=== PATIENT | female | born 1975 | race Caucasian/White ===

== ENCOUNTER 2021-02-22 08:23 | Outpatient (REF) | payer BC, SELFPAY ==
[2021-02-22 12:38] LABS: Alanine Aminotransferase 24 U/L (0-31); Alkaline Phosphatase 43 U/L (39-117); Anion Gap 12 (12-20); Aspartate Amino Transferase 19 U/L (5-31); Bilirubin Total 0.5 mg/dL (0.0-1.0); Blood Urea Nitrogen 12 mg/dL (9-16); Calcium 9.2 mg/dL (8.4-10.2); Carbon Dioxide 28 mmol/L (22-29); Chloride 103 mmol/L (96-108); Cholesterol 208 mg/dL; Estimated Glomerular Filt Rate > 60; Glucose Fasting 94 mg/dL (60-99); HDL Cholesterol 49 mg/dL; LDL Cholesterol Calculated 134 mg/dl; Potassium 3.6 mmol/L (3.3-5.1); Sodium 139 mmol/L (135-145); Total Protein 6.4 g/dL (6.5-8.0); Triglycerides 129 mg/dL
== END 2021-02-22 08:24 | disposition home or self-care (01) ==
LOC: HO.HMGCLDS 08:23
PROVIDERS: PCP Internal Medicine; Visit Provider Internal Medicine
DX: I10 Essential (primary) hypertension (principal); F41.9 Anxiety disorder, unspecified
CPT/HCPCS: 36415; 80053; 80061

== ENCOUNTER 2021-05-18 11:10 | Outpatient (REF) | payer BC, SELFPAY ==
--- NOTE | ~2021-05-18 | XR_ITS ---
EXAMINATION: XR HAND, BILATERAL CLINICAL INFORMATION: Pain COMPARISON: None available at the time of this dictation. TECHNIQUE: Frontal lateral oblique views of each hand were obtained. FINDINGS: There is no fracture or dislocation. Radiocarpal, intercarpal, carpometacarpal, metacarpophalangeal and interphalangeal joints are intact. There are no osteolytic or osteoblastic lesions. There are no bone erosions. Surrounding soft tissue unremarkable. XR/XR hand RT min 3V IMPRESSION: No significant osseous changes to explain patient's symptoms. No evidence of erosions. If remain symptomatic may consider correlation with MRI as more sensitive test.
--- NOTE | ~2021-05-18 | XR_ITS ---
EXAMINATION: XR HAND, BILATERAL CLINICAL INFORMATION: Pain COMPARISON: None available at the time of this dictation. TECHNIQUE: Frontal lateral oblique views of each hand were obtained. FINDINGS: There is no fracture or dislocation. Radiocarpal, intercarpal, carpometacarpal, metacarpophalangeal and interphalangeal joints are intact. There are no osteolytic or osteoblastic lesions. There are no bone erosions. Surrounding soft tissue unremarkable. XR/XR hand LT min 3V IMPRESSION: No significant osseous changes to explain patient's symptoms. No evidence of erosions. If remain symptomatic may consider correlation with MRI as more sensitive test.
== END 2021-05-18 11:11 | disposition home or self-care (01) ==
LOC: HO.XRAY 11:10
PROVIDERS: PCP Internal Medicine; Visit Provider Student in an Organized Health Care Education/Training Program
DX: M79.641 Pain in right hand (principal); M79.642 Pain in left hand
CPT/HCPCS: 73130

== ENCOUNTER 2022-07-09 15:05 | Outpatient (REF) | payer BC, SELFPAY ==
[2022-07-09 16:29] LABS: MANUAL DIFF FLAG NO
[2022-07-09 16:33] LABS: Basophils Percent Auto 0.4 % (0-2); Eosinophils Percent Auto 0.2 % (0-4); Hemoglobin 12.5 g/dl (12.0-16.0); Imm Gran Abs Auto 0.01 X10*3/uL (0.00-0.03); Imm Gran Pct Auto 0.1 % (0.0-0.4); Lymphocytes Absolute Auto 2.7 X10*3/uL (1.2-4.9); Mean Corpuscular HGB Conc 33.8 g/dl (31.0-35.0); Mean Corpuscular Hemoglobin 30.8 pg (27.0-33.0); Mean Corpuscular Volume 91.1 fL (80.0-98.0); Mean Platelet Volume 11.7 fL (9.4-12.3); Monocytes Absolute Auto 0.6 X10*3/uL (0.1-1.2); Monocytes Percent Auto 7.4 % (2-11); Neutrophils Absolute Auto 4.7 x10*3/uL (2.0-8.3); Neutrophils Percent Auto 58.9 % (45-73); Platelet Count 229 X10*3/uL (160-400); Red Blood Count 4.06 X10*6/uL (4.20-5.50); Red Cell Distribution Width 12.1 % (11.0-16.0)
[2022-07-09 17:00] LABS: Alanine Aminotransferase 21 U/L (0-31); Albumin Level 4.6 g/dL (3.5-5.0); Alkaline Phosphatase 53 U/L (39-117); Anion Gap 16 (12-20); Aspartate Amino Transferase 20 U/L (5-31); Bilirubin Total 0.5 mg/dL (0.0-1.0); Blood Urea Nitrogen 11 mg/dL (9-16); Calcium 9.4 mg/dL (8.4-10.2); Carbon Dioxide 27 mmol/L (22-29); Chloride 99 mmol/L (96-108); Cholesterol 216 mg/dL; Estimated Glomerular Filt Rate > 60; Glucose Fasting 90 mg/dL (60-99); HDL Cholesterol 57 mg/dL; LDL Cholesterol Calculated 132 mg/dl; Potassium 3.4 mmol/L (3.3-5.1); Sodium 139 mmol/L (135-145); Total Protein 7.4 g/dL (6.5-8.0); Triglycerides 137 mg/dL
[2022-07-09 17:24] LABS: TSH reflex Free T4 1.25 uIU/mL (0.32-4.0)
== END 2022-07-09 15:06 | disposition home or self-care (01) ==
LOC: HO.HMGCLDS 15:05
PROVIDERS: PCP Internal Medicine; Visit Provider Internal Medicine
DX: F32.9 Major depressive disorder, single episode, unspecified (principal); I10 Essential (primary) hypertension; F41.9 Anxiety disorder, unspecified
CPT/HCPCS: 36415; 80053; 80061; 84443; 85025

== ENCOUNTER 2022-11-29 18:41 | Emergency (ER) | payer BC, SELFPAY ==
[2022-11-29 19:29] VITALS: BP 145/92; PULSE 61; RESP 16; TEMP 36.3; O2SAT 100; BMI 23.9
--- NOTE | 2022-11-29 21:53 | ED.ANIMALBIT ---
HPI - Animal Bite General Chief Complaint: Animal Bite Stated Complaint: dog bite Time Seen by Provider: 11/29/22 21:44 Source: patient Mode of arrival: ambulatory Limitations: no limitations History of Present Illness HPI narrative: Patient came with a dog bite on her left hand when she tried to intervene fighting between the 2 dogs at home. Patient has a laceration at base of left thumb no other injury. Dogs are Immunized and patient had tetanus shot last year Related Data Home Medications Medication Instructions Recorded Confirmed cholecalciferol (vitamin D3) 50 50 mcg PO DAILY 02/23/21 07/10/22 mcg (2,000 unit) capsule diclofenac sodium 1 % topical gel 2 g topical QID PRN 05/18/21 07/10/22 (Voltaren Arthritis Pain) naproxen sodium 220 mg capsule 220 mg PO BID PRN 05/18/21 07/10/22 (Aleve) Previous Rx's Medication Instructions Recorded buspirone 5 mg tablet 5 mg PO .q am PRN anxiety 30 days 09/18/22 #30 tabs escitalopram oxalate 20 mg tablet 20 mg PO DAILY 90 days #90 tabs 09/23/22 atenolol 100 mg tablet 100 mg PO DAILY 90 days #90 tabs 10/15/22 chlorthalidone 25 mg tablet 25 mg PO DAILY 90 days #90 tabs 10/15/22 amoxicillin 875 mg-potassium 1 tab PO BID #20 tabs 11/29/22 clavulanate 125 mg tablet ibuprofen 600 mg tablet 600 mg PO Q6H PRN fever or pain 11/29/22 #30 tabs Allergies Allergy/AdvReac Type Severity Reaction Status Date / Time No Known Allergies Allergy Verified 11/29/22 19:35 Review of Systems Review of Systems: Yes all other systems are reviewed and are negative [facility] Family History Family History Daughter Mental health disorder Father Mental health disorder Social History Social History Household Members: Spouse Housing: House Alcohol intake: current Alcohol intake frequency: a few times a month Alcohol type: beer Patient Tobacco Use Status: Never used Tobacco e-Cigarette/Vaping Use: Never Used Advance Directives: No Advance Directives Information Provided: No service: No Current occupational status: employed 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 2 cm long laceration superficial tenderness intact neurovascular intact Medications Administered Discontinued Medications Generic Name Dose Route Start Last Admin Trade Name Freq PRN Reason Stop Dose Admin Amoxicillin/Clavulanate Potassium 875 mg 11/29/22 21:53 11/29/22 22:20 Amoxicillin/Potassium Clav 875 Mg Tablet PO 11/29/22 21:54 875 mg ONCE ONE Administration Lidocaine HCl 5 ml 11/29/22 21:53 11/29/22 22:21 Lidocaine Hcl 1 % Mpf 5 Ml Vial INFILTRATI 11/29/22 21:54 5 ml ONCE ONE Administration Procedures Laceration Laceration 1: Site: hand Side (If applicable): left Size (cm): 2 Description: linear Depth: simple, single layer Local Anesthetic: lidocaine 1% Amount of anesthesia used (mL): 4 Pre-repair: wound explored Skin layer closed with: nylon Size (cm): 5-0 Number of sutures: 4 Technique: simple, interrupted Discharge Plan Discharge Clinical Impression: Dog bite Patient Disposition: Home, Self-Care Instructions: Animal Bite (ED) Additional Instructions: Local care as advised Take antibiotics as prescribed Suture removed in 7-10 days Report to the ER if increased swelling or pain in the left arm Prescriptions: New ibuprofen 600 mg tablet 600 mg PO Q6H PRN (Reason: fever or pain) Qty: 30 0RF amoxicillin-pot clavulanate 875-125 mg tablet 1 tab PO BID Qty: 20 0RF No Action buspirone 5 mg tablet 5 mg PO .q am PRN (Reason: anxiety) 30 Days Qty: 30 3RF escitalopram oxalate 20 mg tablet 20 mg PO DAILY 90 Days Qty: 90 0RF chlorthalidone 25 mg tablet 25 mg PO DAILY 90 Days Qty: 90 0RF atenolol 100 mg tablet 100 mg PO DAILY 90 Days Qty: 90 0RF cholecalciferol (vitamin D3) 50 mcg (2,000 unit) capsule 50 mcg PO DAILY naproxen sodium [Aleve] 220 mg capsule 220 mg PO BID PRN diclofenac sodium [Voltaren Arthritis Pain] 1 % gel 2 g topical QID PRN Rx Instructions: apply to single elbow, wrist or hand; for hand includes palm/fingers/back of hand Stand Alone Forms: Work/School Release
[2022-11-29] MEDS: Amoxicillin/Potassium Clav 875 MG TABLET PO (22:20)
[2022-11-29] MEDS: Lidocaine HCl 1 % MPF 5 ML VIAL INFILTRATI (22:21)
[2022-11-29] MEDS: Bacitracin Oint 0.9 GM PACKET 1 APPL TOPICAL (23:01)
== END 2022-11-29 23:02 | disposition home or self-care (01) ==
PROVIDERS: Emergency Provider Internal Medicine; PCP Internal Medicine
DX: S61.052A Open bite of left thumb without damage to nail, initial encounter (principal); W54.0XXA Bitten by dog, initial encounter; Y93.9 Activity, unspecified; Y92.9 Unspecified place or not applicable; Y99.9 Unspecified external cause status
CPT/HCPCS: 12001; 99282; 99284

== ENCOUNTER 2023-03-06 21:36 | Emergency (ER) | payer BC, SELFPAY ==
--- NOTE | ~2023-03-06 | CT_ITS ---
EXAMINATION: CT foot LT wo IV con CLINICAL INFORMATION: Reason for Exam left foot pain, ?fx on xray COMPARISON: None. TECHNIQUE: Multidetector CT imaging of the left foot was performed without the use of intravenous contrast. Coronal and sagittal reformats created on an independent workstation were reviewed. This CT examination was performed using dose optimization techniques as appropriate, variously including the following: *Automated exposure control *Adjustment of mA and/or kV according to patient size (this includes techniques or standardized protocols for targeted exams where dose is matched to indication/reason for exam; i.e. extremities or head) *Use of iterative reconstruction technique DLP: 69 mGy-cm FINDINGS: See swan images. 1. Mildly displaced cortical avulsion fracture involving the dorsal anterolateral aspect of the medial cuneiform. 2. Mildly displaced tiny avulsion fracture involving the anterolateral aspect of the medial cuneiforms, expected location of the Lisfranc ligament. 3. Comminuted fractures of the second metatarsal base, volar extending to the tarsometatarsal joint with tiny comminution fragments at the expected attachment of the Lisfranc ligament. 4. Additional tiny avulsion fracture involving the dorsal lateral aspect of the second metatarsal base at the tarsometatarsal joints. 5. Comminuted fractures of the plantar base of the third metatarsal and throughout the plantar aspect of the lateral cuneiform, with intra-articular extension to the tarsometatarsal joint. 6. Tiny avulsion fracture involving the dorsal lateral cortex of the lateral cuneiform. 7. Comminuted fracture involving the fourth metatarsal base with intra-articular extension to the tarsometatarsal joint. 8. There are calcifications along the dorsal lateral cortex of the cuboid which represent additional cortical avulsion fractures, though are age indeterminant. Osseous structures of the hindfoot are intact. Metatarsal and subtalar joints intact. Soft tissues unremarkable. CT/CT foot LT wo IV con IMPRESSION: Extensive comminuted minimally displaced fractures of the midfoot about the tarsometatarsal joints as described.
--- NOTE | ~2023-03-06 | XR_ITS ---
EXAMINATION: 1. Left foot. 2. Left ankle. CLINICAL INFORMATION: Injury. Pain COMPARISON: None. TECHNIQUE: 1. Left foot. 3 views 2. Left ankle. 3 views FINDINGS: 1. Left foot. There is no displaced fracture. Faint radiolucent line through the base of the second metatarsal nonspecific. If there is pain referrable to this region CT recommended for follow-up to exclude a fracture. No dislocation. 2. Left ankle. No fracture. No dislocation. Ankle mortise is congruent. No soft tissue abnormality. XR/XR ankle LT 2V IMPRESSION: 1. Left foot. No displaced fracture. Faint radiolucent line through the base of the second metatarsal. If there is pain referrable to this region CT recommended for follow-up to exclude a fracture. 2. Left ankle. No acute abnormality.
--- NOTE | ~2023-03-06 | XR_ITS ---
EXAMINATION: 1. Left foot. 2. Left ankle. CLINICAL INFORMATION: Injury. Pain COMPARISON: None. TECHNIQUE: 1. Left foot. 3 views 2. Left ankle. 3 views FINDINGS: 1. Left foot. There is no displaced fracture. Faint radiolucent line through the base of the second metatarsal nonspecific. If there is pain referrable to this region CT recommended for follow-up to exclude a fracture. No dislocation. 2. Left ankle. No fracture. No dislocation. Ankle mortise is congruent. No soft tissue abnormality. XR/XR foot LT 2V IMPRESSION: 1. Left foot. No displaced fracture. Faint radiolucent line through the base of the second metatarsal. If there is pain referrable to this region CT recommended for follow-up to exclude a fracture. 2. Left ankle. No acute abnormality.
[2023-03-06 21:39] VITALS: BP 135/88; PULSE 60; RESP 18; TEMP 36.6; O2SAT 100; BMI 24.8
--- NOTE | 2023-03-07 00:21 | ED.LOWEXIN ---
HPI - Extremity Injury (Lower) General Chief Complaint: Extremity Injury, Lower Stated Complaint: left foot inj Time Seen by Provider: 03/06/23 23:28 Source: patient and RN notes reviewed Mode of arrival: ambulatory Limitations: no limitations History of Present Illness HPI Narrative: This is a 47-year-old female, with a past medical history of hypertension, presenting to the emergency department for evaluation of left foot pain since today. Patient reports that she slipped and her leg slipped backwards and she landed on top of her left foot. Patient reports pain with weight-bearing in the pain radiates from her left foot into her leg with weight bearing. She denies taking any medications at home to treat her pain. No history of similar injuries in the past. Denies any other complaints or concerns at this time. MD complaint: foot injury Onset (ago): hour(s) Place: home Severity: moderate Relieving factors: nothing Exacerbating factors: weight bearing Context: fall Associated symptoms: swelling and able to partially bear weight Other symptoms: none Treatments prior to arrival: cold therapy Related Data Home Medications Medication Instructions Recorded Confirmed cholecalciferol (vitamin D3) 50 50 mcg PO DAILY 02/23/21 01/03/23 mcg (2,000 unit) capsule diclofenac sodium 1 % topical gel 2 g topical QID PRN 05/18/21 01/03/23 (Voltaren Arthritis Pain) Previous Rx's Medication Instructions Recorded ibuprofen 600 mg tablet 600 mg PO Q6H PRN fever or pain 11/29/22 #30 tabs escitalopram oxalate 20 mg tablet 20 mg PO DAILY 90 days #90 tabs 12/30/22 atenolol 100 mg tablet 100 mg PO DAILY 90 days #90 tabs 01/21/23 chlorthalidone 25 mg tablet 25 mg PO DAILY 90 days #90 tabs 01/21/23 buspirone 5 mg tablet 5 mg PO TID PRN anxiety 30 days 02/25/23 #90 tabs hydrocodone 5 mg-acetaminophen 325 1 tab PO BID PRN pain #10 tabs 03/07/23 mg tablet ibuprofen 600 mg tablet 600 mg PO Q6H PRN pain #45 tabs 03/07/23 Allergies Allergy/AdvReac Type Severity Reaction Status Date / Time No Known Allergies Allergy Verified 01/03/23 12:29 Review of Systems Review of Systems: Constitutional: No Weight loss, No Fever, No Chills, No Night Sweats, No Fatigue, No Malaise ENT/Mouth: No Hearing loss, No Ear Pain, No Nasal Congestion, No Sinus Pain, No Hoarseness, No sore throat, No Rhinorrhea, No Swallowing Difficulty Eyes: No Eye Pain, No Swelling, No Redness, No Foreign Body, No Discharge, No Vision Changes Cardiovascular: No Chest Pain, No SOB, No Dyspnea on Exertion, No Orthopnea, No Edema, No Palpitations Respiratory: No Cough, No Sputum, No Wheezing, No Smoke Exposure, No Dyspnea Gastrointestinal: No Nausea, No Vomiting, No Diarrhea, No Constipation, No Abdominal pain, No Hematochezia, No Melena Genitourinary: No irregular bleeding, No Dysuria, No Urinary Frequency, No Hematuria, No Urinary Incontinence/retention, No Urgency, No Flank Pain, No Urinary Flow Changes, No Hesitancy Musculoskeletal: No joint pain, No Myalgias, No Joint Swelling Skin: No Skin Lesions, No rash Neuro: No Weakness, No Numbness, No Paresthesias, No Loss of Consciousness, No Dizziness, No Headache Psych: No Anxiety/Panic, No Depression, No SI/HI/AH/VH, No Social Issues, Heme/Lymph: No Bruising, No Bleeding,No Lymphadenopathy Endocrine: No Polyuria, No Polydipsia, No Temperature Intolerance [facility] Family History Family History Daughter Mental health disorder Father Mental health disorder Social History Social History Household Members: Spouse Housing: House Alcohol intake: never Patient Tobacco Use Status: Never used Tobacco Smoked in Last 30 Days: No e-Cigarette/Vaping Use: Never Used Use of substances other than those prescribed or required for medical reasons: No Advance Directives: No Advance Directives Information Provided: No service: No Current occupational status: employed 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 No acute distress. HEENT: Normal inspection CVS: Normal heart rate and rhythm. Pulses normal. Respiratory: No respiratory distress Skin: Warm, dry, no rashes noted to exposed skin. Normal skin color. Normal skin turgor. Extremities: Left foot with moderate edema noted to the dorsal aspect. There is diffuse tenderness to palpation overlying the 2nd 3rd and 4th metatarsals. Most exquisitely tender overlying the 2nd metatarsal. Able to move all toes, able to plantar and dorsiflex. DP pulses 2+ bilaterally distal sensation and circulation intact. No tenderness to palpation over the medial or lateral malleolus. Neuro: Oriented X 3. No motor deficit. No sensory deficit. Course Reevaluation(s) Reevaluation #1: Patient re-evaluated still experiencing significant pain despite medicated with Motrin. CT foot performed, I reviewed the imaging it appears as though patient does have a fracture at the 2nd metatarsal. Will wait for official reading for further management of her symptoms. I discussed my suspicions of fracture with patient. I discussed that we likely will have to place patient in a splint, and patient should be nonweightbearing for the next 3-5 days. Will give referral to [facility] for follow-up. Time: 01:44 Reevaluation #2: CT returns she revealing multiple fractures, see radiology report. Patient will be placed in splint, crutches and given orthopedic follow-up. Patient also given several tablets of narcotic medication. Patient advised that we do not refill these medications in the emergency department however given extensive fractures I deem it is appropriate for severe pain management at home. Patient given return precautions. Patient understands and agrees with plan. Time: 02:15 Medications Administered Discontinued Medications Generic Name Dose Route Start Last Admin Trade Name Freq PRN Reason Stop Dose Admin Hydrocodone Bitart/Acetaminophen 1 tab 03/07/23 01:42 03/07/23 02:13 Hydrocodone Bit/Acetam 5/325 Tablet PO 03/07/23 01:43 1 tab ONCE ONE Administration Ibuprofen 600 mg 03/07/23 00:21 03/07/23 00:29 Ibuprofen 600 Mg Tablet PO 03/07/23 00:22 600 mg ONCE ONE Administration Medical Decision Making Medical Decision Making [facility] Narrative: 47-year-old female, with a past medical history of hypertension, presenting to the emergency department for evaluation of left foot pain status post fall today. On examination, patient's vital signs within normal limits. Patient has exquisite tenderness to palpation overlying 2nd 3rd and 4th metatarsals. Distal sensation circulation intact. X-ray of the left foot revealing faint radiolucent line through the base of the 2nd metatarsal. Given patient says pain is here today recommended CT for for further evaluation. Left ankle is unremarkable. Patient has no tenderness over the medial or lateral mallelous. Differential Diagnosis Differential Diagnoses: The differential diagnosis associated with the presentation includes Left foot fracture, strain, sprain, spasm, contusion Radiology Impression Discussion of test interpretation with radiology: I have reviewed the radiologist's reading. Radiologist Impression: EXAMINATION: 1. Left foot. 2. Left ankle. CLINICAL INFORMATION: Injury. Pain? COMPARISON: None.? TECHNIQUE: 1. Left foot. 3 views 2. Left ankle. 3 views? FINDINGS: 1. Left foot. There is no displaced fracture. Faint radiolucent line through the base of the second metatarsal nonspecific. If there is pain referrable to this region CT recommended for follow-up to exclude a fracture. No dislocation. 2. Left ankle. No fracture. No dislocation. Ankle mortise is congruent. No soft tissue abnormality. XR/XR foot LT 2V IMPRESSION: 1.? Left foot. No displaced fracture. Faint radiolucent line through the base of the second metatarsal. If there is pain referrable to this region CT recommended for follow-up to exclude a fracture. 2.? Left ankle. No acute abnormality. ? Dictated By: Alberto Smith MD Signed By: <Electronically signed by Alberto Smith MD in OV> 03/06/23 8212 DD/ 355 TD/TT:? 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 This was confirmed by your foot CT scan. Please wear splint until you are seen by Orthopedics. Do not bear weight, use crutches. Take ibuprofen and prescribed pain medication as directed. Only take hydrocodone as needed for severe pain, do not drink alcohol or drive while taking this medication as this will make you drowsy. Please be aware that we do not refill this type of medication through the emergency department, please follow-up with your primary care physician. If any new or worsening symptoms occur, please return for re-evaluation. Prescriptions: New ibuprofen 600 mg tablet 600 mg PO Q6H PRN (Reason: pain) Qty: 45 0RF hydrocodone-acetaminophen 5-325 mg tablet 1 tab PO BID PRN (Reason: pain) Qty: 10 0RF Rx Instructions: Partial Fill upon patient request. No Action escitalopram oxalate 20 mg tablet 20 mg PO DAILY 90 Days Qty: 90 0RF chlorthalidone 25 mg tablet 25 mg PO DAILY 90 Days Qty: 90 0RF atenolol 100 mg tablet 100 mg PO DAILY 90 Days Qty: 90 0RF buspirone 5 mg tablet 5 mg PO TID PRN (Reason: anxiety) 30 Days Qty: 90 0RF ibuprofen 600 mg tablet 600 mg PO Q6H PRN (Reason: fever or pain) Qty: 30 0RF cholecalciferol (vitamin D3) 50 mcg (2,000 unit) capsule 50 mcg PO DAILY diclofenac sodium [Voltaren Arthritis Pain] 1 % gel 2 g topical QID PRN Rx Instructions: apply to single elbow, wrist or hand; for hand includes palm/fingers/back of hand Referrals: [facility] [Provider Group] Stand Alone Forms: Work/School Release
[2023-03-07] MEDS: Ibuprofen 600 MG TABLET PO (00:29)
[2023-03-07] MEDS: HYDROcodone Bit/Acetam 5/325 TABLET 1 TAB PO (02:13)
== END 2023-03-07 02:38 | disposition home or self-care (01) ==
PROVIDERS: Emergency Provider Internal Medicine; PCP Internal Medicine
DX: S92.902A Unspecified fracture of left foot, initial encounter for closed fracture (principal); M79.672 Pain in left foot; M25.572 Pain in left ankle and joints of left foot; W01.0XXA Fall on same level from slipping, tripping and stumbling without subsequent striking against object, initial encounter; Y93.9 Activity, unspecified; Y92.9 Unspecified place or not applicable; Y99.9 Unspecified external cause status; Z79.899 Other long term (current) drug therapy
CPT/HCPCS: 73600; 73620; 73700; 99284

== ENCOUNTER 2023-03-20 09:12 | Outpatient (REF) | payer BC, SELFPAY | END 2023-03-20 09:13 | disposition home or self-care (01) | LOC: HO.HOSX 09:12 | PROVIDERS: Visit Provider Physician Assistant | DX: Z13.89 Encounter for screening for other disorder (principal) ==

== ENCOUNTER 2023-05-02 14:06 | Outpatient (REF) | payer BC, SELFPAY ==
[2023-05-02 16:41] LABS: MANUAL DIFF FLAG NO
[2023-05-02 16:48] LABS: Basophils Percent Auto 0.4 % (0-2); Eosinophils Absolute Auto 0.1 X10*3/uL (0.0-0.4); Eosinophils Percent Auto 0.7 % (0-4); Hematocrit 37.9 % (37.0-47.0); Hemoglobin 13.1 g/dl (12.0-16.0); Imm Gran Abs Auto 0.03 X10*3/uL (0.00-0.03); Imm Gran Pct Auto 0.4 % (0.0-0.4); Lymphocytes Absolute Auto 2.1 X10*3/uL (1.2-4.9); Lymphocytes Percent Auto 28.8 % (20-40); Mean Corpuscular HGB Conc 34.6 g/dl (31.0-35.0); Mean Corpuscular Hemoglobin 32.4 pg (27.0-33.0); Mean Corpuscular Volume 93.8 fL (80.0-98.0); Mean Platelet Volume 12.2 fL (9.4-12.3); Monocytes Absolute Auto 0.5 X10*3/uL (0.1-1.2); Monocytes Percent Auto 7.4 % (2-11); Neutrophils Absolute Auto 4.6 x10*3/uL (2.0-8.3); Neutrophils Percent Auto 62.3 % (45-73); Platelet Count 275 X10*3/uL (160-400); Red Blood Count 4.04 X10*6/uL (4.20-5.50); Red Cell Distribution Width 12.6 % (11.0-16.0); White Blood Count 7.3 X10*3/uL (4.8-10.8)
[2023-05-02 17:02] LABS: Alanine Aminotransferase 25 U/L (0-31); Albumin Level 4.4 g/dL (3.5-5.0); Alkaline Phosphatase 60 U/L (39-117); Anion Gap 12 (12-20); Aspartate Amino Transferase 18 U/L (5-31); Bilirubin Total 0.5 mg/dL (0.0-1.0); Blood Urea Nitrogen 7 mg/dL (9-16); Calcium 10.1 mg/dL (8.4-10.2); Carbon Dioxide 27 mmol/L (22-29); Chloride 100 mmol/L (96-108); Estimated Glomerular Filt Rate > 60; Glucose Random 125 mg/dL (60-115); Potassium 3.3 mmol/L (3.3-5.1); Sodium 136 mmol/L (135-145); Total Protein 7.6 g/dL (6.5-8.0)
[2023-05-03 16:09] LABS: LDL Cholesterol Direct 172 mg/dL (<100)
== END 2023-05-02 14:07 | disposition home or self-care (01) ==
LOC: HO.HMGCLDS 14:06
PROVIDERS: PCP Internal Medicine; Visit Provider Internal Medicine
DX: F32.9 Major depressive disorder, single episode, unspecified (principal); F41.9 Anxiety disorder, unspecified; I10 Essential (primary) hypertension
CPT/HCPCS: 36415; 80053; 83721; 85025

== ENCOUNTER 2023-05-06 09:48 | Outpatient (AMB) | payer BC, SELFPAY ==
--- NOTE | 2023-05-06 09:50 | MHC.PC.OV ---
Vital Signs 05/06/23 09:54 Height 5 ft 3 in Weight 152 lb 6 oz BMI 27.0 BP 126/88 Blood Pressure Location Lt brachial Position Sitting Pulse 63 Pulse Source Pulse Oximeter Pulse Oximetry (%) 98 Oxygen Delivery Method Room Air Intake Visit Reasons: 4m follow up Allergies No Known Allergies Allergy (Verified 05/06/23 09:54) Medication List - Last Reconciled 05/06/23 by Beni Moeller MD atenolol 100 mg PO DAILY 90 days buspirone 5 mg PO TID PRN 30 days chlorthalidone 25 mg PO DAILY 90 days cholecalciferol (vitamin D3) 50 mcg PO DAILY diclofenac sodium 1% (Voltaren Arthritis Pain) 2 grams topical QID PRN escitalopram oxalate 20 mg PO DAILY 90 days hydrocodone-acetaminophen 5-325 mg 1 tab PO BID PRN ibuprofen 600 mg PO Q6H PRN ibuprofen 600 mg PO Q6H PRN Tobacco use date assessed: 05/06/23 Dental Screening Dental Screen Date: 05/06/23 Did you have a dental visit in the last 12 months?: Yes Did you have a dental problem in the last 6 months where you did not have access to dental care?: No Was dental information given to patient?: No HPI 4m follow up HPI Details Patient is a 47-year-old female came in today for her regular follow-up appointment Patient says that she feels as if she is going through menopause as she is having hot flashes at night and having difficulty sleeping Hypertension: Blood pressure is stable She is taking atenolol 100 mg, and chlorthalidone 25 mg for blood pressure Anxiety: Patient is on Lexapro 20 mg daily and buspirone 5 mg up to 3 times a day Patient had labs done recently and I see that her LDL has gone to 171 it was 121 in 2019 Patient says that she knows that she is not eating healthy she will start eating healthy now She has physical exam appointment coming up end of June we will repeat labs again then I am also prescribing med does open 15 mg patient is to take half a tablet initially to see if that is enough as a sleep aid. 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 1. Little interest or pleasure in doing things: several days 2. Feeling down, depressed, or hopeless: more than half the days 3. Trouble falling or staying asleep, or sleeping too much: nearly every day 4. Feeling tired or having little energy: several days 5. Poor appetite or overeating: several days 6. Feeling bad about yourself - or that you are a failure or have let yourself or your family down: not at all 7. Trouble concentrating on things, such as reading the newspaper or watching television: not at all 8. Moving or speaking so slowly that other people could have noticed. Or the opposite - being so fidgety or restless that you have been moving around a lot more than usual: not at all 9. Thoughts that you would be better off or of hurting yourself in some way: several days Total score: 9 Depression Screening Interpretation: Negative 65070 - PHQ-9 Billing: Yes Source: Developed by Drs. Everette Hughes, Tali Dwyer, Niraj Bryan and colleagues, with an educational shawnee from [employer]. Thrive Questionnaire Date Thrive assessed: 05/06/23 I am a: Patient What is your living situation today?: I have a steady place to live Within the past 12 months, did the food you bought not last and you didn't have the money to get more?: Never true Within the past 12 months, did you worry whether your food would run out before you got money to buy more?: Never true Do you have trouble paying for medicines?: No Do you have trouble getting transportation to medical appointments?: No Do you have trouble paying your heating and electricity bill?: No Do you have trouble taking care of your child, family member or friend?: No Do you have trouble with day-to-day activities such as bathing, preparing meals, shopping, managing finances, etc.?: No Are you currently unemployed and looking for a job?: No Are you interested in more education?: No AUDIT C Alcohol Use Questionnaire (AUDIT-C) 1. How often do you have a drink containing alcohol?: Monthly or less 2. How many drinks containing alcohol do you have on a typical day when you are drinking?: 1 or 2 3. How often do you have six or more drinks on one occasion?: Never Total Score: 1 Score Reviewed/Action Taken: Yes BEN-7 AMB Questionnaire BEN-7 Date BEN - 7 assessed: 05/06/23 Feeling nervous, anxious, or on edge: 3 = Nearly every day Not being able to stop or control worryin = Nearly every day Worrying too much about different things: 3 = Nearly every day Trouble relaxin = More than half the days Being so restless that it is hard to sit still: 1 = Several days Becoming easily annoyed or irritable: 2 = More than half the days Feeling afraid as if something awful might happen: 2 = More than half the days Total BEN-7 score (0-4 normal; 5-9 mild; 10-14 moderate; 15-21 severe): 16 Source: Developed by Drs. Everette Hughes, Tali Dwyer, Niraj Bryan and colleagues, with an educational shawnee from [employer]. BEN-7 Assessment Billing BEN-7 Assessment Tool: BEN-7 Assessment 36844 Review of Systems Const Denies chills and Denies fever(s) ENT Denies epistaxis and Denies nasal discharge Card Denies chest pain Resp Denies chest congestion, Denies cough and Denies hemoptysis GI Denies diarrhea and Denies nausea Skin/Breast Denies rash Neuro Reports no additional complaints Psych Reports no additional complaints Endo Reports no additional complaints Physical exam (Primary Care) Vital Signs: Last Vital Signs Pulse 63 05/06/23 09:54 BP 126/88 05/06/23 09:54 Pulse Ox 98 05/06/23 09:54 Oxygen Delivery Method Room Air 05/06/23 09:54 BMI result Body Mass Index 27.0 Tobacco/Smoking Status: Tobacco use Status Tobacco use date assessed 05/06/23 05/06/23 09:56 Patient Tobacco Use Status Never used Tobacco 05/06/23 09:51 e-Cigarette/Vaping Use Never Used 05/06/23 09:51 PHQ-9: PHQ-9 Score PHQ-9: Total score 9 05/06/23 10:10 Depression Screening Interpretation: Negative Thrive Assessment: Date of Thrive Assessment Date Thrive assessed 05/06/23 05/06/23 10:10 Const General: cooperative, comfortable and no acute distress Orientation/consciousness: patient oriented x3 HENMT Head: Yes normocephalic Eyes General: appearance normal, both eyes and all related structures Neck Neck: Yes supple Resp Effort & Inspection: normal respiratory effort, no cough and no stridor Cardio Rhythm: regular rhythm Heart sounds: S1 normal heart sound present and S2 normal heart sound present Skin General skin exam: turgor normal Neuro General: patient oriented x3, tone normal and moves all extremities Extrem Right lower extremity: no edema Left lower extremity: no edema Assessment and Plan Assessment & Plan (1) Hypertension, essential: Code(s): I10 - Essential (primary) hypertension (2) Anxiety and depression: Code(s): F41.9 - Anxiety disorder, unspecified; F32.9 - Major depressive disorder, single episode, unspecified (3) Bilateral hand pain: Code(s): M79.641 - Pain in right hand; M79.642 - Pain in left hand (4) Difficulty sleeping: Code(s): G47.9 - Sleep disorder, unspecified (5) Lipid disorder: Code(s): E78.9 - Disorder of lipoprotein metabolism, unspecified Plan Patient is a 47-year-old female came in today for her regular follow-up appointment Patient says that she feels as if she is going through menopause as she is having hot flashes at night and having difficulty sleeping Hypertension: Blood pressure is stable She is taking atenolol 100 mg, and chlorthalidone 25 mg for blood pressure Anxiety: Patient is on Lexapro 20 mg daily and buspirone 5 mg up to 3 times a day Patient had labs done recently and I see that her LDL has gone to 171 it was 121 in 2019 Patient says that she knows that she is not eating healthy she will start eating healthy now She has physical exam appointment coming up end of June we will repeat labs again then I am also prescribing med does open 15 mg patient is to take half a tablet initially to see if that is enough as a sleep aid. Patient has chronic joint pains off and on as well Follow-up end of June for physical exam appointment Orders: Orders Comprehensive Taylor. Panel Fast Today E78.9 - Disorder of lipoprotein metabolism, unspecified, F32.9 - Major depressive disorder, single episode, unspecified, F41.9 - Anxiety disorder, unspecified, G47.9 - Sleep disorder, unspecified, I10 - Essential (primary) hypertension, M79.641 - Pain in right hand, M79.642 - Pain in left hand Lipid Panel Today E78.9 - Disorder of lipoprotein metabolism, unspecified, F32.9 - Major depressive disorder, single episode, unspecified, F41.9 - Anxiety disorder, unspecified, G47.9 - Sleep disorder, unspecified, I10 - Essential (primary) hypertension, M79.641 - Pain in right hand, M79.642 - Pain in left hand TSH reflex Free T4 Today E78.9 - Disorder of lipoprotein metabolism, unspecified, F32.9 - Major depressive disorder, single episode, unspecified, F41.9 - Anxiety disorder, unspecified, G47.9 - Sleep disorder, unspecified, I10 - Essential (primary) hypertension, M79.641 - Pain in right hand, M79.642 - Pain in left hand Vitamin D 25-OH (D2 and D3) Today E78.9 - Disorder of lipoprotein metabolism, unspecified, F32.9 - Major depressive disorder, single episode, unspecified, F41.9 - Anxiety disorder, unspecified, G47.9 - Sleep disorder, unspecified, I10 - Essential (primary) hypertension, M79.641 - Pain in right hand, M79.642 - Pain in left hand Medications: New mirtazapine 15 mg PO BEDTIME 30 tabs 0RF To sleep Discontinued hydrocodone-acetaminophen 5-325 mg Partial Fill upon patient request. Discontinued Reason: Patient Completed Course 1 tab PO BID PRN 10 tabs 0RF pain Coding Level of Care Code Est Pt Level 4 (07393) Diagnoses Hypertension, essential I10 Anxiety and depression F41.9; F32.9 Bilateral hand pain M79.641; M79.642 Difficulty sleeping G47.9 Lipid disorder E78.9 Additional Codes BEN-7 Assessment Billing - BEN-7 Assessment Tool: BEN-7 Assessment [id number] ([id number])
[2023-05-06 09:54] VITALS: BP 126/88; PULSE 63; O2SAT 98; BMI 27.0
== END 2023-05-06 10:06 | disposition home or self-care (01) ==
PROVIDERS: Visit Provider Internal Medicine
DX: I10 Essential (primary) hypertension (principal); F41.9 Anxiety disorder, unspecified; F32.9 Major depressive disorder, single episode, unspecified; M79.641 Pain in right hand; M79.642 Pain in left hand; G47.9 Sleep disorder, unspecified; E78.9 Disorder of lipoprotein metabolism, unspecified
CPT/HCPCS: 99214

== ENCOUNTER 2023-08-23 10:21 | Outpatient (REF) | payer BC, SELFPAY ==
[2023-08-23 11:54] LABS: Alanine Aminotransferase 54 U/L (0-31); Albumin Level 4.2 g/dL (3.5-5.0); Alkaline Phosphatase 49 U/L (39-117); Anion Gap 15 (12-20); Aspartate Amino Transferase 35 U/L (5-31); Bilirubin Total 0.5 mg/dL (0.0-1.0); Blood Urea Nitrogen 15 mg/dL (9-16); Calcium 9.3 mg/dL (8.4-10.2); Carbon Dioxide 26 mmol/L (22-29); Chloride 102 mmol/L (96-108); Cholesterol 268 mg/dL (<200); Estimated Glomerular Filt Rate > 60; Glucose Fasting 108 mg/dL (60-99); HDL Cholesterol 44 mg/dL (>40); LDL Cholesterol Calculated 193 mg/dL (<100); Potassium 3.1 mmol/L (3.3-5.1); Sodium 140 mmol/L (135-145); Total Protein 7.1 g/dL (6.5-8.0); Triglycerides 158 mg/dL (<150)
[2023-08-23 12:09] LABS: TSH reflex Free T4 2.13 uIU/mL (0.32-4.0)
[2023-08-26 15:48] LABS: Vitamin D 25-OH, D2 <4 ng/mL; Vitamin D 25-OH, D3 26 ng/mL; Vitamin D 25-OH, Total 26 ng/mL (30-100)
== END 2023-08-23 10:22 | disposition home or self-care (01) ==
LOC: HO.HMGCLDS 10:21
PROVIDERS: PCP Internal Medicine; Visit Provider Internal Medicine
DX: I10 Essential (primary) hypertension (principal); F41.9 Anxiety disorder, unspecified; F32.9 Major depressive disorder, single episode, unspecified; M79.641 Pain in right hand; M79.642 Pain in left hand; G47.9 Sleep disorder, unspecified; E78.9 Disorder of lipoprotein metabolism, unspecified
CPT/HCPCS: 36415; 80053; 80061; 82306; 84443

== ENCOUNTER 2023-08-26 15:22 | Outpatient (AMB) | payer BC, SELFPAY ==
[2023-08-26 15:27] VITALS: BP 132/84; PULSE 67; BMI 27.3
--- NOTE | 2023-08-26 15:27 | A.OFFPC_ITS ---
Vital Signs 08/26/23 15:27 Height 5 ft 3 in Weight 154 lb BMI 27.3 BP 132/84 Blood Pressure Location Lt brachial Position Sitting Pulse 67 Pulse Source Pulse Oximeter Intake Visit Reasons: Annual PE Allergies No Known Allergies Allergy (Verified 08/26/23 15:27) Medication List - Last Reconciled 08/26/23 by Beni Moeller MD atenolol 100 mg PO DAILY 90 days buspirone 5 mg PO TID PRN 30 days chlorthalidone 25 mg PO DAILY 90 days cholecalciferol (vitamin D3) 50 mcg PO DAILY diclofenac sodium 1% (Voltaren Arthritis Pain) 2 grams topical QID PRN escitalopram oxalate 20 mg PO DAILY 90 days mirtazapine 15 mg PO BEDTIME Tobacco use date assessed: 08/26/23 Dental Screening Dental Screen Date: 08/26/23 Did you have a dental visit in the last 12 months?: Yes Did you have a dental problem in the last 6 months where you did not have access to dental care?: No Was dental information given to patient?: Patient has dentist HPI Annual PE HPI Details Patient is a 47-year-old female came today physical examination Patient is seeing OBGYN, breast exam and Pap smear through them Patient had labs done recently her LDL came back at 193 Liver enzymes are elevated as well Fasting sugar was 108 And potassium was 3.1 Patient does drink beer, low potassium could be secondary to alcohol. I will be repeating labs again in couple of weeks. If her liver enzymes became normal or stable I will start her on cholesterol medication. She is not feeling well today with upper respiratory tract infection with sinus congestion Clear nasal discharge COVID test was negative at home And she does not have high fever so I did not to the flu. 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 1. Little interest or pleasure in doing things: several days 2. Feeling down, depressed, or hopeless: several days 3. Trouble falling or staying asleep, or sleeping too much: several days 4. Feeling tired or having little energy: several days 5. Poor appetite or overeating: several days 6. Feeling bad about yourself - or that you are a failure or have let yourself or your family down: not at all 7. Trouble concentrating on things, such as reading the newspaper or watching television: not at all 8. Moving or speaking so slowly that other people could have noticed. Or the opposite - being so fidgety or restless that you have been moving around a lot more than usual: not at all 9. Thoughts that you would be better off or of hurting yourself in some way: several days Total score: 6 Depression Screening Interpretation: Negative Depression Screening Done: Yes 95661 - PHQ-9 Billing: Yes Source: Developed by Drs. Everette Hughes, Tali Dwyer, Niraj Bryan and colleagues, with an educational shawnee from [employer]. Thrive Questionnaire Date Thrive assessed: 05/06/23 AUDIT C Alcohol Use Questionnaire (AUDIT-C) 1. How often do you have a drink containing alcohol?: Monthly or less 2. How many drinks containing alcohol do you have on a typical day when you are drinking?: 1 or 2 3. How often do you have six or more drinks on one occasion?: Never Total Score: 1 Score Reviewed/Action Taken: Yes BEN-7 AMB Questionnaire BEN-7 Date BEN - 7 assessed: 05/06/23 Source: Developed by Drs. Everette Hughes, Niraj Ravi and colleagues, with an educational shawnee from [employer]. Review of Systems Const Denies chills, Denies fever(s) and Denies headache(s) Eyes Denies blurry vision ENT Denies headache(s) and Denies odynophagia Card Denies chest pain at rest and Denies chest pain with activity Resp Denies hemoptysis GI Denies diarrhea, Denies odynophagia, Denies vomiting and Denies hematemesis Reports as per HPI Musc Denies abnormal gait Skin/Breast Reports as per HPI Neuro Denies Neuro-related abnormal movements, Denies Abnormal speech present, Denies abnormal gait, Denies headache(s) and Denies Sensory deficit (Neuro) Psych Denies mood swings and Denies paranoia Endo Reports as per HPI Roel/Lymph Reports as per HPI Aller/Immun Reports as per HPI Physical exam (Primary Care) Vital Signs: Last Vital Signs Pulse 67 08/26/23 15:27 BP 132/84 08/26/23 15:27 BMI result Body Mass Index 27.3 Tobacco/Smoking Status: Tobacco use Status Tobacco use date assessed 08/26/23 08/26/23 15:33 Patient Tobacco Use Status Never used Tobacco 08/26/23 15:33 e-Cigarette/Vaping Use Never Used 08/26/23 15:33 PHQ-9: PHQ-9 Score PHQ-9: Total score 6 08/26/23 15:48 Depression Screening Interpretation: Negative Thrive Assessment: Date of Thrive Assessment Date Thrive assessed 05/06/23 08/26/23 15:33 Const General: cooperative, comfortable and no acute distress Orientation/consciousness: patient oriented x3 HENMT Head: Yes normocephalic and Yes atraumatic Eyes General: appearance normal, both eyes and all related structures Pupils: Equal, round and reactive pupils present EOM: EOMs intact bilaterally Neck Neck: Yes supple and No lymphadenopathy Thyroid: Thyroid normal Lymphatic: no lymphadenopathy noted Resp Effort & Inspection: normal respiratory effort and able to speak in complete sentences Auscultation: clear to auscultation bilaterally Cardio Heart sounds: S1 normal heart sound present and S2 normal heart sound present GI Palpation (GI): Soft to palpation and nontender Auscultation: normal bowel sounds General: Yes no CVA tenderness Back/Spine/Pelvis Back: no CVA tenderness Skin General skin exam: elasticity normal and turgor normal Neuro General: patient oriented x3 and gait normal Cranial nerves: Yes Equal, round and reactive pupils present Speech: No Abnormal speech present Sensory Exam: No Sensory deficit (Neuro) Coordination: tandem gait normal and Romberg test negative Extrem General: Yes normal exam except as noted and No edema Assessment and Plan Assessment & Plan (1) Encounter for general adult medical examination with abnormal findings: Code(s): Z00.01 - Encounter for general adult medical examination with abnormal findings (2) Lipid disorder: Code(s): E78.9 - Disorder of lipoprotein metabolism, unspecified (3) Difficulty sleeping: Code(s): G47.9 - Sleep disorder, unspecified (4) Hypertension, essential: Code(s): I10 - Essential (primary) hypertension (5) LFT elevation: Code(s): R79.89 - Other specified abnormal findings of blood chemistry (6) Impaired fasting blood sugar: Code(s): R73.01 - Impaired fasting glucose Plan Patient is a 47-year-old female came today physical examination Patient is seeing OBGYN, breast exam and Pap smear through them Patient had labs done recently her LDL came back at 193 Liver enzymes are elevated as well Fasting sugar was 108 And potassium was 3.1 Patient does drink beer, low potassium could be secondary to alcohol. I will be repeating labs again in couple of weeks. If her liver enzymes became normal or stable I will start her on cholesterol medication. She is not feeling well today with upper respiratory tract infection with sinus congestion Clear nasal discharge COVID test was negative at home And she does not have high fever so I did not to the flu. Orders: Orders Hemoglobin A1c Today E78.9 - Disorder of lipoprotein metabolism, unspecified, R73.01 - Impaired fasting glucose, R79.89 - Other specified abnormal findings of blood chemistry Comprehensive Met. Panel Today E78.9 - Disorder of lipoprotein metabolism, unspecified, R73.01 - Impaired fasting glucose, R79.89 - Other specified abnormal findings of blood chemistry LDL Cholesterol Direct Today E78.9 - Disorder of lipoprotein metabolism, unspecified, R73.01 - Impaired fasting glucose, R79.89 - Other specified abnormal findings of blood chemistry Coding Level of Care Code Est Pt Prev Care 40-64y(95572) Diagnoses Encounter for general adult medical examination with abnormal findings Z00.01 Lipid disorder E78.9 Difficulty sleeping G47.9 Hypertension, essential I10 LFT elevation R79.89 Impaired fasting blood sugar R73.01
== END 2023-08-26 16:57 | disposition home or self-care (01) ==
PROVIDERS: PCP Internal Medicine; Visit Provider Internal Medicine
DX: Z00.01 Encounter for general adult medical examination with abnormal findings (principal); E78.9 Disorder of lipoprotein metabolism, unspecified; G47.9 Sleep disorder, unspecified; I10 Essential (primary) hypertension; R79.89 Other specified abnormal findings of blood chemistry; R73.01 Impaired fasting glucose
CPT/HCPCS: 99396

== ENCOUNTER 2023-09-27 11:50 | Outpatient (REF) | payer BC, SELFPAY ==
[2023-09-30 04:24] LABS: LDL Cholesterol Direct 177 mg/dL (<100)
== END 2023-09-27 11:51 | disposition home or self-care (01) ==
LOC: HO.HMGCLDS 11:50
PROVIDERS: PCP Internal Medicine; Visit Provider Internal Medicine
DX: R79.89 Other specified abnormal findings of blood chemistry (principal); R73.01 Impaired fasting glucose; E78.9 Disorder of lipoprotein metabolism, unspecified
CPT/HCPCS: 36415; 80053; 83036; 83721

== ENCOUNTER 2024-01-07 08:35 | Outpatient (REF) | payer BC, SELFPAY ==
[2024-01-07 10:47] LABS: Alanine Aminotransferase 40 U/L (0-31); Albumin Level 4.5 g/dL (3.5-5.0); Alkaline Phosphatase 54 U/L (39-117); Aspartate Amino Transferase 30 U/L (5-31); Bilirubin Direct 0.2 mg/dL (0.0-0.5); Bilirubin Total 0.6 mg/dL (0.0-1.0); Cholesterol 189 mg/dL (<200); HDL Cholesterol 50 mg/dL (>40); LDL Cholesterol Calculated 117 mg/dL (<100); Total Protein 7.6 g/dL (6.5-8.0); Triglycerides 114 mg/dL (<150)
== END 2024-01-07 08:36 | disposition home or self-care (01) ==
LOC: HO.HMGCLDS 08:35
PROVIDERS: PCP Internal Medicine; Visit Provider Internal Medicine
DX: E78.9 Disorder of lipoprotein metabolism, unspecified (principal)
CPT/HCPCS: 36415; 80061; 80076

== ENCOUNTER 2024-01-09 13:41 | Outpatient (AMB) | payer BC, SELFPAY ==
[2024-01-09 13:46] VITALS: BP 130/78; PULSE 57; O2SAT 99; BMI 27.1
--- NOTE | 2024-01-09 13:46 | MHC.PC.OV ---
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 Accompanied by: Self / Same As Patient Allergies No Known Allergies Allergy (Verified 01/09/24 13:47) Medication List - Last Reconciled 01/09/24 by Beni Moeller MD atenolol 100 mg PO DAILY 90 days buspirone 5 mg PO TID PRN 30 days chlorthalidone 25 mg PO DAILY 90 days cholecalciferol (vitamin D3) 50 mcg PO DAILY diclofenac sodium 1% (Voltaren Arthritis Pain) 2 grams topical QID PRN escitalopram oxalate 20 mg PO DAILY 90 days mirtazapine 15 mg PO BEDTIME simvastatin 20 mg PO DAILY Tobacco use date assessed: 01/09/24 Dental Screening Dental Screen Date: 01/09/24 Did you have a dental visit in the last 12 months?: Yes Did you have a dental problem in the last 6 months where you did not have access to dental care?: No Was dental information given to patient?: Patient has dentist HPI 4 Month f/u~ HPI Details Patient is a 48-year-old female came in today for her regular follow-up appointment hot flashes at night continues, which is causing difficulty sleeping Then wakes up tired Have 15-year-old son that she needs the for school She also have an L2 daughter who is not home Patient is struggling with finances, and at times feels overwhelmed Drinks during the weekends Last time her sodium was 3.3, we talked about stopping at cold altogether She continued to feel anxious I am adding lorazepam 0.5 mg to be taken as needed rather than reaching out for alcoholic drink Patient is aware of side effects of being a habit-forming controlled medication, no driving or working with machine while on this medication She will take it only during weekends when she is not working Hypertension: Blood pressure is stable She is taking atenolol 100 mg, and chlorthalidone 25 mg for blood pressure, she will have labs done again before next visit in 3 months If potassium still low I will stop chlorthalidone Anxiety: Patient is on Lexapro 20 mg daily and buspirone 5 mg up to 3 times a day Depression screening states thoughts of hurting herself several days, patient says that she think about it but she will never hurt herself or think about suicide I have offered therapy appointment to patient she will think about it and will get back to me Lipid disorder: Continue simvastatin 20 mg her LDL has improved on this medication Follow-up 3 months [facility] Surgical History No pertinent past surgical history Family History Daughter Mental health disorder Father Mental health disorder Social History Household Members: Spouse Housing: House Alcohol intake: never Patient Tobacco Use Status: Never used Tobacco e-Cigarette/Vaping Use: Never Used service: No Current occupational status: employed 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 1. Little interest or pleasure in doing things: nearly every day 2. Feeling down, depressed, or hopeless: more than half the days 3. Trouble falling or staying asleep, or sleeping too much: nearly every day 4. Feeling tired or having little energy: nearly every day 5. Poor appetite or overeating: more than half the days 6. Feeling bad about yourself - or that you are a failure or have let yourself or your family down: more than half the days 7. Trouble concentrating on things, such as reading the newspaper or watching television: several days 8. Moving or speaking so slowly that other people could have noticed. Or the opposite - being so fidgety or restless that you have been moving around a lot more than usual: not at all 9. Thoughts that you would be better off or of hurting yourself in some way: several days Total score: 17 Depression Screening Interpretation: Positive Depression Screening Follow-up: Existing condition and In treatment Depression Screening Done: Yes 87352 - PHQ-9 Billing: Yes Source: Developed by Drs. Everette Hughes, Tali Dwyer, Niraj Bryan and colleagues, with an educational shawnee from [employer]. Thrive Questionnaire Date Thrive assessed: 01/09/24 I am a: Patient What is your living situation today?: I have a steady place to live Within the past 12 months, did the food you bought not last and you didn't have the money to get more?: Never true Within the past 12 months, did you worry whether your food would run out before you got money to buy more?: Never true Do you have trouble paying for medicines?: No Do you have trouble getting transportation to medical appointments?: No Do you have trouble paying your heating and electricity bill?: No Do you have trouble taking care of your child, family member or friend?: No Do you have trouble with day-to-day activities such as bathing, preparing meals, shopping, managing finances, etc.?: No Are you currently unemployed and looking for a job?: No Are you interested in more education?: No Please select the resources that you would like help with: None Currently or been in a relationship where the following occur: no concerns reported THRIVE Score: 0 AUDIT C Alcohol Use Questionnaire (AUDIT-C) 1. How often do you have a drink containing alcohol?: Monthly or less 2. How many drinks containing alcohol do you have on a typical day when you are drinking?: 1 or 2 3. How often do you have six or more drinks on one occasion?: Never Total Score: 1 Score Reviewed/Action Taken: Yes BEN-7 AMB Questionnaire BEN-7 Date BEN - 7 assessed: 01/09/24 Feeling nervous, anxious, or on edge: 2 = More than half the days Not being able to stop or control worryin = More than half the days Worrying too much about different things: 2 = More than half the days Trouble relaxin = Several days Being so restless that it is hard to sit still: 0 = Not at all Becoming easily annoyed or irritable: 2 = More than half the days Feeling afraid as if something awful might happen: 3 = Nearly every day Total BEN-7 score (0-4 normal; 5-9 mild; 10-14 moderate; 15-21 severe): 12 Source: Developed by Drs. Everette Hughes, Tali Dwyer, Niraj Bryan and colleagues, with an educational shawnee from [employer]. BEN-7 Assessment Billing BEN-7 Assessment Tool: BEN-7 Assessment 77440 Review of Systems Const Denies chills and Denies fever(s) ENT Denies epistaxis and Denies nasal discharge Card Denies chest pain Resp Denies chest congestion, Denies cough and Denies hemoptysis GI Denies diarrhea and Denies nausea Skin/Breast Denies rash Neuro Reports no additional complaints Psych Reports no additional complaints Endo Reports no additional complaints Physical exam (Primary Care) Vital Signs: Last Vital Signs Pulse 57 01/09/24 13:46 BP 130/78 01/09/24 13:46 Pulse Ox 99 01/09/24 13:46 Oxygen Delivery Method Room Air 01/09/24 13:46 BMI result Body Mass Index 27.1 Tobacco/Smoking Status: Tobacco use Status Tobacco use date assessed 01/09/24 01/09/24 13:47 Patient Tobacco Use Status Never used Tobacco 01/09/24 13:46 e-Cigarette/Vaping Use Never Used 01/09/24 13:46 PHQ-9: PHQ-9 Score PHQ-9: Total score 17 01/09/24 13:52 Depression Screening Interpretation: Positive Depression Screening Follow-up: Existing condition and In treatment Thrive Assessment: Date of Thrive Assessment Date Thrive assessed 01/09/24 01/09/24 13:52 Currently or been in a relationship where the following occur: no concerns reported Const General: cooperative, comfortable and no acute distress Orientation/consciousness: patient oriented x3 HENMT Head: Yes normocephalic Eyes General: appearance normal, both eyes and all related structures Neck Neck: Yes supple Resp Effort & Inspection: normal respiratory effort, no cough and no stridor Cardio Rhythm: regular rhythm Heart sounds: S1 normal heart sound present and S2 normal heart sound present Skin General skin exam: turgor normal Neuro General: patient oriented x3, tone normal and moves all extremities Extrem Right lower extremity: no edema Left lower extremity: no edema Assessment and Plan Assessment & Plan (1) Hypertension, essential: Code(s): I10 - Essential (primary) hypertension (2) Lipid disorder: Code(s): E78.9 - Disorder of lipoprotein metabolism, unspecified (3) Difficulty sleeping: Code(s): G47.9 - Sleep disorder, unspecified (4) LFT elevation: Code(s): R79.89 - Other specified abnormal findings of blood chemistry (5) Impaired fasting blood sugar: Code(s): R73.01 - Impaired fasting glucose (6) Anxiety and depression: Code(s): F41.9 - Anxiety disorder, unspecified; F32.9 - Major depressive disorder, single episode, unspecified Plan Patient is a 48-year-old female came in today for her regular follow-up appointment hot flashes at night continues, which is causing difficulty sleeping Then wakes up tired Have 15-year-old son that she needs the for school She also have an L2 daughter who is not home Patient is struggling with finances, and at times feels overwhelmed Drinks during the weekends Last time her sodium was 3.3, we talked about stopping at cold altogether She continued to feel anxious I am adding lorazepam 0.5 mg to be taken as needed rather than reaching out for alcoholic drink Patient is aware of side effects of being a habit-forming controlled medication, no driving or working with machine while on this medication She will take it only during weekends when she is not working Hypertension: Blood pressure is stable She is taking atenolol 100 mg, and chlorthalidone 25 mg for blood pressure, she will have labs done again before next visit in 3 months If potassium still low I will stop chlorthalidone Anxiety: Patient is on Lexapro 20 mg daily and buspirone 5 mg up to 3 times a day Depression screening states thoughts of hurting herself several days, patient says that she think about it but she will never hurt herself or think about suicide I have offered therapy appointment to patient she will think about it and will get back to me Lipid disorder: Continue simvastatin 20 mg her LDL has improved on this medication Follow-up 3 months Orders: Orders Complete Blood Count Auto Diff Today E78.9 - Disorder of lipoprotein metabolism, unspecified, F32.9 - Major depressive disorder, single episode, unspecified, F41.9 - Anxiety disorder, unspecified, G47.9 - Sleep disorder, unspecified, I10 - Essential (primary) hypertension, R73.01 - Impaired fasting glucose, R79.89 - Other specified abnormal findings of blood chemistry Comprehensive Met. Panel Today E78.9 - Disorder of lipoprotein metabolism, unspecified, F32.9 - Major depressive disorder, single episode, unspecified, F41.9 - Anxiety disorder, unspecified, G47.9 - Sleep disorder, unspecified, I10 - Essential (primary) hypertension, R73.01 - Impaired fasting glucose, R79.89 - Other specified abnormal findings of blood chemistry LDL Cholesterol Direct Today E78.9 - Disorder of lipoprotein metabolism, unspecified, F32.9 - Major depressive disorder, single episode, unspecified, F41.9 - Anxiety disorder, unspecified, G47.9 - Sleep disorder, unspecified, I10 - Essential (primary) hypertension, R73.01 - Impaired fasting glucose, R79.89 - Other specified abnormal findings of blood chemistry TSH reflex Free T4 Today E78.9 - Disorder of lipoprotein metabolism, unspecified, F32.9 - Major depressive disorder, single episode, unspecified, F41.9 - Anxiety disorder, unspecified, G47.9 - Sleep disorder, unspecified, I10 - Essential (primary) hypertension, R73.01 - Impaired fasting glucose, R79.89 - Other specified abnormal findings of blood chemistry Hemoglobin A1c Today E78.9 - Disorder of lipoprotein metabolism, unspecified, F32.9 - Major depressive disorder, single episode, unspecified, F41.9 - Anxiety disorder, unspecified, G47.9 - Sleep disorder, unspecified, I10 - Essential (primary) hypertension, R73.01 - Impaired fasting glucose, R79.89 - Other specified abnormal findings of blood chemistry Medications: New lorazepam 0.5 mg PO DAILY PRN 30 tabs 0RF anxiety Coding Level of Care Code Est Pt Level 4 (66430) Diagnoses Hypertension, essential I10 Lipid disorder E78.9 Difficulty sleeping G47.9 LFT elevation R79.89 Impaired fasting blood sugar R73.01 Anxiety and depression F41.9; F32.9 Additional Codes BEN-7 Assessment Billing - BEN-7 Assessment Tool: BEN-7 Assessment 50242 ([id number])
== END 2024-01-09 14:12 | disposition home or self-care (01) ==
PROVIDERS: PCP Internal Medicine; Visit Provider Internal Medicine
DX: I10 Essential (primary) hypertension (principal); E78.9 Disorder of lipoprotein metabolism, unspecified; G47.9 Sleep disorder, unspecified; R79.89 Other specified abnormal findings of blood chemistry; R73.01 Impaired fasting glucose; F41.9 Anxiety disorder, unspecified; F32.9 Major depressive disorder, single episode, unspecified
CPT/HCPCS: 99214

== ENCOUNTER 2024-05-05 14:52 | Outpatient (REF) | payer BC, SELFPAY ==
[2024-05-05 16:21] LABS: MANUAL DIFF FLAG NO
[2024-05-05 16:25] LABS: Basophils Percent Auto 0.5 % (0-2); Eosinophils Absolute Auto 0.1 X10*3/uL (0.0-0.4); Eosinophils Percent Auto 0.8 % (0-4); Hematocrit 37.9 % (37.0-47.0); Hemoglobin 13.2 g/dl (12.0-16.0); Imm Gran Abs Auto 0.03 X10*3/uL (0.00-0.03); Imm Gran Pct Auto 0.4 % (0.0-0.4); Lymphocytes Absolute Auto 2.5 X10*3/uL (1.2-4.9); Lymphocytes Percent Auto 32.6 % (20-40); Mean Corpuscular HGB Conc 34.8 g/dl (31.0-35.0); Mean Corpuscular Hemoglobin 31.4 pg (27.0-33.0); Mean Platelet Volume 11.9 fL (9.4-12.3); Monocytes Absolute Auto 0.7 X10*3/uL (0.1-1.2); Monocytes Percent Auto 9.4 % (2-11); Neutrophils Absolute Auto 4.3 x10*3/uL (2.0-8.3); Neutrophils Percent Auto 56.3 % (45-73); Platelet Count 241 X10*3/uL (160-400); Red Blood Count 4.21 X10*6/uL (4.20-5.50); Red Cell Distribution Width 12.1 % (11.0-16.0); White Blood Count 7.6 X10*3/uL (4.8-10.8)
[2024-05-05 16:33] LABS: Estimated Average Glucose 111 mg/dL; Hemoglobin A1c % 5.5 % (<6.0)
[2024-05-05 18:03] LABS: Alanine Aminotransferase 31 U/L (0-31); Albumin Level 4.6 g/dL (3.5-5.0); Alkaline Phosphatase 50 U/L (39-117); Anion Gap 13 (12-20); Aspartate Amino Transferase 27 U/L (5-31); Bilirubin Total 0.6 mg/dL (0.0-1.0); Blood Urea Nitrogen 11 mg/dL (9-16); Calcium 9.8 mg/dL (8.4-10.2); Carbon Dioxide 27 mmol/L (22-29); Chloride 98 mmol/L (96-108); Estimated Glomerular Filt Rate > 60; Glucose Random 113 mg/dL (60-115); Potassium 2.9 mmol/L (3.3-5.1); Sodium 135 mmol/L (135-145); TSH reflex Free T4 1.58 uIU/mL (0.32-4.0); Total Protein 7.7 g/dL (6.5-8.0)
[2024-05-06 09:18] LABS: LDL Cholesterol Direct 108 mg/dL (<100)
== END 2024-05-05 14:53 | disposition home or self-care (01) ==
LOC: HO.HMGCLDS 14:52
PROVIDERS: PCP Internal Medicine; Visit Provider Internal Medicine
DX: I10 Essential (primary) hypertension (principal); F41.9 Anxiety disorder, unspecified; F32.9 Major depressive disorder, single episode, unspecified; G47.9 Sleep disorder, unspecified; E78.9 Disorder of lipoprotein metabolism, unspecified; R79.89 Other specified abnormal findings of blood chemistry; R73.01 Impaired fasting glucose
CPT/HCPCS: 36415; 80053; 83036; 83721; 84443; 85025

== ENCOUNTER 2024-05-06 15:05 | Outpatient (REF) | payer BC, SELFPAY ==
[2024-05-06 16:41] LABS: Anion Gap 14 (12-20); Blood Urea Nitrogen 13 mg/dL (9-16); Calcium 9.9 mg/dL (8.4-10.2); Carbon Dioxide 27 mmol/L (22-29); Chloride 100 mmol/L (96-108); Estimated Glomerular Filt Rate > 60; Glucose Random 103 mg/dL (60-115); Potassium 3.2 mmol/L (3.3-5.1); Sodium 138 mmol/L (135-145)
== END 2024-05-06 15:06 | disposition home or self-care (01) ==
LOC: HO.LAB 15:05
PROVIDERS: PCP Internal Medicine; Referring Provider Internal Medicine; Visit Provider Family Medicine
DX: E87.6 Hypokalemia (principal)
CPT/HCPCS: 36415; 80048

== ENCOUNTER 2024-05-19 00:15 | Emergency (ER) | payer BC, SELFPAY ==
--- NOTE | 2024-05-19 | ECG_ITS ---
Test Reason : chest pain Blood Pressure : / mmHG Vent. Rate : 068 BPM Atrial Rate : 068 BPM P-R Int : 152 ms QRS Dur : 088 ms QT Int : 438 ms P-R-T Axes : 054 -21 075 degrees QTc Int : 465 ms Normal sinus rhythm Low voltage QRS Borderline ECG No previous ECGs available Referred By: Generic ED Physician Electronically Signed By:HADLEY WILKINSON
--- NOTE | ~2024-05-19 | XR_ITS ---
EXAMINATION: XR CHEST CLINICAL INFORMATION: Pain COMPARISON: None available. TECHNIQUE: Frontal view of the chest was obtained. FINDINGS: No significant abnormality is noted involving the heart, lungs, mediastinum, bony thorax or soft tissues. XR/XR chest 1V IMPRESSION: Unremarkable examination. Electronically signed by: Everette Acosta MD 05/19/2024 12:58 AM EDT RP
[2024-05-19 00:29] VITALS: BP 121/79; PULSE 72; RESP 18; TEMP 36.9; O2SAT 100; BMI 26.7
[2024-05-19 00:55] LABS: Basophils Absolute Auto 0.1 X10*3/uL (0.0-0.2); Basophils Percent Auto 0.5 % (0-2); Eosinophils Absolute Auto 0.1 X10*3/uL (0.0-0.4); Eosinophils Percent Auto 0.8 % (0-4); Hematocrit 35.3 % (37.0-47.0); Hemoglobin 12.2 g/dl (12.0-16.0); Imm Gran Abs Auto 0.04 X10*3/uL (0.00-0.03); Imm Gran Pct Auto 0.4 % (0.0-0.4); Lymphocytes Absolute Auto 4.6 X10*3/uL (1.2-4.9); Lymphocytes Percent Auto 47.3 % (20-40); MANUAL DIFF FLAG NO; Mean Corpuscular HGB Conc 34.6 g/dl (31.0-35.0); Mean Corpuscular Hemoglobin 31.6 pg (27.0-33.0); Mean Corpuscular Volume 91.5 fL (80.0-98.0); Mean Platelet Volume 11.2 fL (9.4-12.3); Monocytes Absolute Auto 0.5 X10*3/uL (0.1-1.2); Neutrophils Absolute Auto 4.5 x10*3/uL (2.0-8.3); Platelet Count 232 X10*3/uL (160-400); Red Blood Count 3.86 X10*6/uL (4.20-5.50); Red Cell Distribution Width 12.5 % (11.0-16.0); White Blood Count 9.7 X10*3/uL (4.8-10.8)
--- NOTE | 2024-05-19 00:57 | ED.CHESTPAIN ---
HPI - Chest Pain General Chief Complaint: General Medical Stated Complaint: swelling in ankles- chest pain Time Seen by Provider: 05/19/24 00:48 Source: patient, family and old records reviewed Mode of arrival: ambulatory Limitations: no limitations History of Present Illness ED Provider: BENNETT FOSTER narrative: 48 yo female with hyperlipidemia, anxiety, HTN here with c/o switch from chlorthalidone to amlodipine 5mg 4 days ago since then ankle swelling and then since Friday has had paroxysmal sharp L sided chest pain at rest. No associated dyspnea. She also had L eye pain but does not report change in vision or any other neuro symptoms. Patient has never been on amlodipine before. The patient was taken off chlorthalidone due to hypokalemia. The patient denies travel, OCP use, known CAD. MD complaint: chest pain Onset (ago): day(s) (Friday) Timing of current episode: episodic Prior episodes: No Onset: during rest Pain location: left chest Pain radiation: none Severity: moderate Quality: sharp Relieving factors: nothing Exacerbating factors: nothing Context: new medications Associated symptoms: leg swelling Treatment prior to arrival: none Related Data Home Medications ?Medication ?Instructions ?Recorded ?Confirmed cholecalciferol (vitamin D3) 50 50 mcg PO DAILY 02/23/21 01/09/24 mcg (2,000 unit) capsule diclofenac sodium 1 % topical gel 2 g topical QID PRN 05/18/21 01/09/24 (Voltaren Arthritis Pain) Previous Rx's ?Medication ?Instructions ?Recorded buspirone 5 mg tablet 5 mg PO TID PRN anxiety 30 days 05/05/23 #90 tabs mirtazapine 15 mg tablet 15 mg PO BEDTIME To sleep #30 tabs 06/09/23 lorazepam 0.5 mg tablet 0.5 mg PO DAILY PRN anxiety #30 01/09/24 tabs simvastatin 20 mg tablet 20 mg PO DAILY High cholesterol 03/23/24 #90 tabs atenolol 100 mg tablet 100 mg PO DAILY 90 days #90 tabs 03/31/24 escitalopram oxalate 20 mg tablet 20 mg PO DAILY 90 days #90 tabs 04/13/24 potassium chloride 20 mEq 20 meq PO DAILY 7 days #7 tabs 05/05/24 tablet,extended release(part/cryst) amlodipine 5 mg tablet 5 mg PO DAILY #90 tabs 05/06/24 lisinopril 5 mg tablet 5 mg PO DAILY #30 tabs 05/19/24 Allergies Allergy/AdvReac Type Severity Reaction Status Date / Time No Known Allergies Allergy Verified 05/19/24 00:34 Review of Systems Review of Systems: Constitutional : No Weight loss, No Fever, No Chills ENT/Mouth : No sore throat, No Rhinorrhea Eyes: No Eye Pain, No Swelling Cardiovascular : pos Chest Pain, no SOB, no Dyspnea on Exertion, No Orthopnea, pos Edema, No Palpitations Respiratory : No Cough, No Sputum Gastrointestinal : pos Nausea, No Vomiting, No Diarrhea, No abdominal Pain, No Hematochezia, No Melena Genitourinary : No Dysuria, No Urinary Frequency Musculoskeletal : No joint pain, No Myalgias, No Joint Swelling Skin : No Skin Lesions, No rash Neuro : No Weakness, No Numbness, No Dizziness, pos Headache Psych : No Anxiety/Panic, No Depression Heme/Lymph: No Bruising, No Lymphadenopathy Endocrine : No Polyuria, No Polydipsia All other systems reviewed and are negative [facility] Past Medical History Attestation statement: The following information was validated with the patient. 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 Oriented X3. No acute distress. Eyes: Pupils equal, round and reactive to light. ENT: Pharynx normal. Neck: Normal inspection. Neck supple. CVS: Normal heart rate and rhythm. Pulses normal. Respiratory: No respiratory distress. Breath sounds normal. Abdomen: Soft and nontender. Skin: Skin warm and dry. Normal skin color. Normal skin turgor. Extremities: trace non pitting ankle lower extremity edema. No calf ttp Neuro: Oriented X 3. No motor deficit. No sensory deficit. Medical Decision Making Medical Decision Making [facility] Narrative: 48 yo female with hyperlipidemia, anxiety, HTN here with c/o sharp chest pain not on OCPs no associated dyspnea and ankle edema in setting of new amlodipine and coming off of her diuretic. At this time her pain is atypical in nature will need trop x 1 given pain since Friday, ddimer given nature of pain, CXR, BNP, EKG. Her eye pain is atypical no neuro symptoms and pupils ERRL. Doubt ICH, stroke. Will switch to lisinopril and refer to PCP. Differential Diagnosis Differential Diagnoses: The differential diagnosis associated with the presentation includes amlodipine adverse reaction, atypical chest pain Admission/Observation Consideration of admission/observation: Escalation of care including admission/observation considered Lab Data [facility] Lab Attestation statement: I reviewed the patient's lab results. 05/19/24 00:47 05/19/24 00:47 Labs: Lab Results 05/19/24 05/19/24 Range/Units 00:47 00:57 WBC 9.7 (4.8-10.8) X10*3/uL RBC 3.86 L (4.20-5.50) X10*6/uL Hgb 12.2 (12.0-16.0) g/dl Hct 35.3 L (37.0-47.0) % MCV 91.5 (80.0-98.0) fL MCH 31.6 (27.0-33.0) pg MCHC 34.6 (31.0-35.0) g/dl RDW 12.5 (11.0-16.0) % Plt Count 232 (160-400) X10*3/uL MPV 11.2 (9.4-12.3) fL Immature Gran % (Auto) 0.4 (0.0-0.4) % Neut % (Auto) 46.0 (45-73) % Lymph % (Auto) 47.3 H (20-40) % [place] % (Auto) 5.0 (2-11) % Eos % (Auto) 0.8 (0-4) % Baso % (Auto) 0.5 (0-2) % Lymph # (Auto) 4.6 (1.2-4.9) X10*3/uL [place] # (Auto) 0.5 (0.1-1.2) X10*3/uL Eos # (Auto) 0.1 (0.0-0.4) X10*3/uL Baso # (Auto) 0.1 (0.0-0.2) X10*3/uL Abs Immat Gran (auto) 0.04 H (0.00-0.03) X10*3/uL Absolute Neuts (auto) 4.5 (2.0-8.3) x10*3/uL Absolute Nucleated RBC 0.000 (0.0-0.012) X10*3/uL Nucleated RBC % (auto) 0.0 (0.0-0.2) /100WBC D-Dimer High Sensitivty < 150 NG/ML Sodium 136 (135-145) mmol/L Potassium 3.3 (3.3-5.1) mmol/L Chloride 106 (96-108) mmol/L Carbon Dioxide 22 (22-29) mmol/L Anion Gap 11 L (12-20) BUN 8 L (9-16) mg/dL Creatinine 0.74 (0.5-1.4) mg/dL Estim Creat Clear Calc 88.1 Estimated GFR > 60 Random Glucose 125 H (60-115) mg/dL Calcium 8.7 D (8.4-10.2) mg/dL Total Bilirubin 0.2 (0.0-1.0) mg/dL AST 23 (5-31) U/L ALT 26 (0-31) U/L Alkaline Phosphatase 59 (39-117) U/L Troponin I High Sens < 2.7 (<3.5-17.0) ng/L B-Natriuretic Peptide 54 (<100) pg/mL Total Protein 7.0 (6.5-8.0) g/dL Albumin 4.3 (3.5-5.0) g/dL Urine Color Yellow Urine Appearance Clear Urine pH 5.5 (5.0-9.0) Ur Specific [place] <= 1.005 (1.005-1.025) Urine Protein Negative (Neg-Trace) mg/dL Urine Glucose (UA) Negative (Negative) mg/dL Urine Ketones Negative (Negative) mg/dL Urine Blood Negative (Negative) Urine Nitrite Negative (Negative) Ur Leukocyte Esterase Negative (Negative) Independent Interpretation I performed an independent interpretation of an: EKG and Plain X-Ray Interpretation: Rate: 68 Rhythm: NSR Dawson: left Normal P waves. Normal MIGUEL. Normal QRS complex. ST T wave : no AMY qTC: 465 prior studies: no acute ischemia The study has been interpreted contemporaneously by me. . Radiology Impression Discussion of test interpretation with radiology: I have reviewed the radiologist's reading. Independent Historian Clinical information obtained from an independent historian. History obtained from or confirmed by: Spouse External Record Review External record reviewed: Office record Prescription Management I considered prescription management with: Other Discharge Plan Discharge Clinical Impression: Atypical chest pain Ankle swelling Qualifiers: Laterality: unspecified laterality Qualified Code(s): M25.473 - Effusion, unspecified ankle Patient Disposition: Home, Self-Care Instructions: Chest Pain (ED), Edema (ED) Additional Instructions: EKG no acute findings, chest xray normal blood clot test ddimer negative troponin negative potassium 3.3 please stop amlodipine return for any worsening symptoms or concerns ask your doctor next week for outpatient stress test seek immediate care for any oral swelling or allergy symptoms when on lisinopril wear compressive stocking or tight soccer socks to decrease swelling for 7 days Prescriptions: New lisinopril 5 mg tablet 5 mg PO DAILY Qty: 30 0RF No Action buspirone 5 mg tablet 5 mg PO TID PRN (Reason: anxiety) 30 Days Qty: 90 0RF mirtazapine 15 mg tablet 15 mg PO BEDTIME Qty: 30 0RF simvastatin 20 mg tablet 20 mg PO DAILY Qty: 90 0RF atenolol 100 mg tablet 100 mg PO DAILY 90 Days Qty: 90 0RF escitalopram oxalate 20 mg tablet 20 mg PO DAILY 90 Days Qty: 90 0RF potassium chloride 20 mEq tablet,ER particles/crystals 20 meq PO DAILY 7 Days Qty: 7 0RF amlodipine 5 mg tablet 5 mg PO DAILY Qty: 90 0RF cholecalciferol (vitamin D3) 50 mcg (2,000 unit) capsule 50 mcg PO DAILY lorazepam 0.5 mg tablet 0.5 mg PO DAILY PRN (Reason: anxiety) Qty: 30 0RF diclofenac sodium [Voltaren Arthritis Pain] 1 % gel 2 g topical QID PRN Rx Instructions: apply to single elbow, wrist or hand; for hand includes palm/fingers/back of hand Print Language: Romanian
[2024-05-19 01:02] LABS: D Dimer High Sensitivity < 150 NG/ML
[2024-05-19 01:10] LABS: Alanine Aminotransferase 26 U/L (0-31); Albumin Level 4.3 g/dL (3.5-5.0); Alkaline Phosphatase 59 U/L (39-117); Anion Gap 11 (12-20); Aspartate Amino Transferase 23 U/L (5-31); Bilirubin Total 0.2 mg/dL (0.0-1.0); Blood Urea Nitrogen 8 mg/dL (9-16); Calcium 8.7 mg/dL (8.4-10.2); Carbon Dioxide 22 mmol/L (22-29); Chloride 106 mmol/L (96-108); Creatinine Clr Calc Pharmacy 88.1; Estimated Glomerular Filt Rate > 60; Glucose Random 125 mg/dL (60-115); Potassium 3.3 mmol/L (3.3-5.1); Sodium 136 mmol/L (135-145)
[2024-05-19 01:12] LABS: Appearance Urine Clear; Color Urine Yellow; Glucose Urine UA Negative (Negative); Leukocyte Esterase Urine Negative (Negative); Nitrite Urine Negative (Negative); PH 5.5 (5.0-9.0); Specific Gravity - Urine <= 1.005 (1.005-1.025); Urine Blood Negative (Negative); Urine Ketones Negative (Negative); Urine Protein Negative (Neg-Trace)
[2024-05-19 01:16] LABS: B Type Natriuretic Peptide 54 pg/mL (<100)
[2024-05-19 01:27] LABS: Troponin-I High Sensitivity < 2.7 ng/L (<3.5-17.0)
[2024-05-19 02:23] VITALS: BP 101/62; PULSE 60; RESP 15; TEMP 36.8; O2SAT 97
== END 2024-05-19 02:24 | disposition home or self-care (01) ==
PROVIDERS: Emergency Provider Emergency Medicine; PCP Internal Medicine
DX: R07.89 Other chest pain (principal); R60.0 Localized edema; Z79.899 Other long term (current) drug therapy
CPT/HCPCS: 36415; 71045; 80053; 81003; 83880; 84484; 85025; 85379; 93005; 99283; 99284

== ENCOUNTER 2024-05-25 15:16 | Outpatient (AMB) | payer BC, SELFPAY ==
--- NOTE | 2024-05-25 15:29 | MHC.PC.OV ---
Vital Signs 05/25/24 15:31 Height 5 ft 3 in Weight 160 lb BMI 28.3 BP 130/86 Blood Pressure Location Rt brachial Position Sitting Pulse 54 Pulse Source Pulse Oximeter Pulse Oximetry (%) 100 Oxygen Delivery Method Room Air Intake Visit Reasons: 3M F/U choles Allergies No Known Allergies Allergy (Verified 05/25/24 15:30) Medication List - Last Reconciled 05/25/24 by Beni Moeller MD atenolol 100 mg PO DAILY 90 days buspirone 5 mg PO TID PRN 30 days diclofenac sodium 1% (Voltaren Arthritis Pain) 2 grams topical QID PRN escitalopram oxalate 20 mg PO DAILY 90 days lisinopril 5 mg PO DAILY lorazepam 0.5 mg PO DAILY PRN mirtazapine 15 mg PO BEDTIME simvastatin 20 mg PO DAILY Tobacco use date assessed: 05/25/24 Dental Screening Dental Screen Date: 05/25/24 Did you have a dental visit in the last 12 months?: Yes Did you have a dental problem in the last 6 months where you did not have access to dental care?: No Was dental information given to patient?: Patient has dentist HPI 3M F/U choles HPI Details Patient is a 48-year-old female came in today for her regular follow-up appointment Patient ended up in the emergency room due to not feeling well and was having swelling of her ankles Found to have low-potassium, her chlorthalidone was stopped and she was started on lisinopril 5 mg She is also on atenolol 100 mg, feeling much better She has also changed her position at work which has also helped with the stress level Hypertension: Blood pressure is stable Anxiety: Patient is on Lexapro 20 mg daily and buspirone 5 mg up to 3 times a day, taking lorazepam only if needed, script sent for 30 more tablets Lipid disorder: Continue simvastatin 20 mg Labs done in April reviewed Patient have a follow-up appointment in August for physical exam [facility] Medical History Anxiety and depression Hypertension, essential Lipid disorder Hypokalemia Surgical History No pertinent past surgical history Family History Daughter Mental health disorder Father Mental health disorder Social History Household Members: Spouse Housing: House Alcohol intake: never Patient Tobacco Use Status: Never used Tobacco e-Cigarette/Vaping Use: Never Used service: No Current occupational status: employed 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 1. Little interest or pleasure in doing things: not at all 2. Feeling down, depressed, or hopeless: several days 3. Trouble falling or staying asleep, or sleeping too much: more than half the days 4. Feeling tired or having little energy: several days 5. Poor appetite or overeating: not at all 6. Feeling bad about yourself - or that you are a failure or have let yourself or your family down: not at all 7. Trouble concentrating on things, such as reading the newspaper or watching television: several days 8. Moving or speaking so slowly that other people could have noticed. Or the opposite - being so fidgety or restless that you have been moving around a lot more than usual: not at all 9. Thoughts that you would be better off or of hurting yourself in some way: not at all Total score: 5 Depression Screening Interpretation: Negative Depression Screening Done: Yes 21773 - PHQ-9 Billing: Yes Source: Developed by Drs. Everette Hughes, Tali Dwyer, Niraj Bryan and colleagues, with an educational shawnee from [employer]. Thrive Questionnaire Date Thrive assessed: 05/25/24 I am a: Patient What is your living situation today?: I have a steady place to live Within the past 12 months, did the food you bought not last and you didn't have the money to get more?: Never true Within the past 12 months, did you worry whether your food would run out before you got money to buy more?: I choose not to answer this question Do you have trouble paying for medicines?: No Do you have trouble getting transportation to medical appointments?: No Do you have trouble paying your heating and electricity bill?: No Do you have trouble taking care of your child, family member or friend?: No Do you have trouble with day-to-day activities such as bathing, preparing meals, shopping, managing finances, etc.?: No Are you currently unemployed and looking for a job?: No Are you interested in more education?: No Please select the resources that you would like help with: None Currently or been in a relationship where the following occur: No concerns reported THRIVE Score: 0 AUDIT C Alcohol Use Questionnaire (AUDIT-C) 1. How often do you have a drink containing alcohol?: 2-4 times a month 2. How many drinks containing alcohol do you have on a typical day when you are drinking?: 3 or 4 3. How often do you have six or more drinks on one occasion?: Monthly Total Score: 5 Score Reviewed/Action Taken: Yes BEN-7 AMB Questionnaire BEN-7 Date BEN - 7 assessed: 05/25/24 Feeling nervous, anxious, or on edge: 1 = Several days Not being able to stop or control worryin = More than half the days Worrying too much about different things: 2 = More than half the days Trouble relaxin = Not at all Being so restless that it is hard to sit still: 0 = Not at all Becoming easily annoyed or irritable: 1 = Several days Feeling afraid as if something awful might happen: 1 = Several days Total BEN-7 score (0-4 normal; 5-9 mild; 10-14 moderate; 15-21 severe): 7 Source: Developed by Drs. Everette Hughes, Tali Dwyer, Niraj rByan and colleagues, with an educational shawnee from [employer]. BEN-7 Assessment Billing BEN-7 Assessment Tool: BEN-7 Assessment 53062 Review of Systems Const Denies chills and Denies fever(s) ENT Denies epistaxis and Denies nasal discharge Card Denies chest pain Resp Denies chest congestion, Denies cough and Denies hemoptysis GI Denies diarrhea and Denies nausea Skin/Breast Denies rash Neuro Reports no additional complaints Psych Reports no additional complaints Endo Reports no additional complaints Physical exam (Primary Care) Vital Signs: Last Vital Signs Pulse 54 05/25/24 15:31 BP 130/86 05/25/24 15:31 Pulse Ox 100 05/25/24 15:31 Oxygen Delivery Method Room Air 05/25/24 15:31 BMI result Body Mass Index 28.3 Tobacco/Smoking Status: Tobacco use Status Tobacco use date assessed 05/25/24 05/25/24 15:35 Patient Tobacco Use Status Never used Tobacco 05/25/24 15:35 e-Cigarette/Vaping Use Never Used 05/25/24 15:35 PHQ-9: PHQ-9 Score PHQ-9: Total score 5 05/25/24 15:35 Depression Screening Interpretation: Negative Thrive Assessment: Date of Thrive Assessment Date Thrive assessed 05/25/24 05/25/24 15:35 Currently or been in a relationship where the following occur: No concerns reported Const General: cooperative, comfortable and no acute distress Orientation/consciousness: patient oriented x3 HENMT Head: Yes normocephalic Eyes General: appearance normal, both eyes and all related structures Neck Neck: Yes supple Resp Effort & Inspection: normal respiratory effort, no cough and no stridor Cardio Rhythm: regular rhythm Heart sounds: S1 normal heart sound present and S2 normal heart sound present Skin General skin exam: turgor normal Neuro General: patient oriented x3, tone normal and moves all extremities Extrem Right lower extremity: no edema Left lower extremity: no edema Assessment and Plan Assessment & Plan (1) Hypertension, essential: Code(s): I10 - Essential (primary) hypertension (2) Lipid disorder: Code(s): E78.9 - Disorder of lipoprotein metabolism, unspecified (3) Difficulty sleeping: Code(s): G47.9 - Sleep disorder, unspecified (4) Anxiety and depression: Code(s): F41.9 - Anxiety disorder, unspecified; F32.9 - Major depressive disorder, single episode, unspecified Plan Patient is a 48-year-old female came in today for her regular follow-up appointment Patient ended up in the emergency room due to not feeling well and was having swelling of her ankles Found to have low-potassium, her chlorthalidone was stopped and she was started on lisinopril 5 mg She is also on atenolol 100 mg, feeling much better She has also changed her position at work which has also helped with the stress level Hypertension: Blood pressure is stable Anxiety: Patient is on Lexapro 20 mg daily and buspirone 5 mg up to 3 times a day, taking lorazepam only if needed, script sent for 30 more tablets Lipid disorder: Continue simvastatin 20 mg Labs done in April reviewed Patient have a follow-up appointment in August for physical exam Medications: Refilled lorazepam 0.5 mg PO DAILY PRN 30 tabs 0RF anxiety Coding Level of Care Code Est Pt Level 3 (45202) Diagnoses Hypertension, essential I10 Lipid disorder E78.9 Difficulty sleeping G47.9 Anxiety and depression F41.9; F32.9 Additional Codes BEN-7 Assessment Billing - BEN-7 Assessment Tool: BEN-7 Assessment 31653 ([id number])
[2024-05-25 15:31] VITALS: BP 130/86; PULSE 54; O2SAT 100; BMI 28.3
== END 2024-05-25 16:01 | disposition home or self-care (01) ==
PROVIDERS: PCP Internal Medicine; Visit Provider Internal Medicine
DX: I10 Essential (primary) hypertension (principal); E78.9 Disorder of lipoprotein metabolism, unspecified; G47.9 Sleep disorder, unspecified; F41.9 Anxiety disorder, unspecified; F32.9 Major depressive disorder, single episode, unspecified
CPT/HCPCS: 99213

== ENCOUNTER 2024-09-24 01:22 | Emergency (ER) | payer BC, SELFPAY ==
--- NOTE | ~2024-09-24 | XR_ITS ---
CLINICAL HISTORY: cough, sob 2 view chest x-ray Comparison: None Findings: No consolidation or effusion. Normal size heart. No acute fracture. IMPRESSION: 1. No acute findings. This document has been electronically signed by: Rosendo Banks MD on 09/24/2024 02:14:13
[2024-09-24 01:27] VITALS: BP 143/95; PULSE 67; RESP 16; TEMP 36.6; O2SAT 96; BMI 26.6
[2024-09-24 01:52] LABS: IDNOW Serial# 58CA691E; Strep A Nucleic Acid Negative (Negative)
[2024-09-24 02:07] VITALS: BP 147/92; PULSE 65; RESP 16; TEMP 36.2; O2SAT 96
[2024-09-24 02:18] LABS: Influenza A PCR NEGATIVE (Negative); Influenza B PCR NEGATIVE (Negative); Resp Syncy Virus RNA Qual PCR NEGATIVE (Negative); SARS COV2 PCR INHOUSE NEGATIVE (Negative)
--- NOTE | 2024-09-24 02:49 | ED.URI ---
HPI - URI/Sore Throat General Chief Complaint: Upper Respiratory Symptoms Stated Complaint: flu like Time Seen by Provider: 09/24/24 02:49 Source: patient Mode of arrival: ambulatory Limitations: no limitations History of Present Illness ED Provider: HPI Narrative: Patient otherwise healthy been coughing with sore throat nasal congestion low-grade fever for last 5 days patient's was sick with before but he is better now unable to sleep in the night because of cough no history of asthma cough is with mucopurulent phlegm Related Data Home Medications ?Medication ?Instructions ?Recorded ?Confirmed diclofenac sodium 1 % topical gel 2 g topical QID PRN 05/18/21 05/25/24 (Voltaren Arthritis Pain) Previous Rx's ?Medication ?Instructions ?Recorded buspirone 5 mg tablet 5 mg PO TID PRN anxiety 30 days 05/05/23 #90 tabs mirtazapine 15 mg tablet 15 mg PO BEDTIME To sleep #30 tabs 06/09/23 lorazepam 0.5 mg tablet 0.5 mg PO DAILY PRN anxiety #30 05/25/24 tabs escitalopram oxalate 20 mg tablet 20 mg PO DAILY 90 days #90 tabs 06/21/24 atenolol 100 mg tablet 100 mg PO DAILY 90 days #90 tabs 08/10/24 lisinopril 5 mg tablet 5 mg PO DAILY #90 tabs 08/10/24 simvastatin 20 mg tablet 20 mg PO DAILY High cholesterol 08/17/24 #90 tabs cefuroxime axetil 500 mg tablet 500 mg PO BID 7 days #14 tabs 09/24/24 codeine 10 mg-guaifenesin 100 mg/5 10 ml PO Q6H PRN cough #237 mL 09/24/24 mL oral liquid Allergies Allergy/AdvReac Type Severity Reaction Status Date / Time No Known Allergies Allergy Verified 09/24/24 01:29 Review of Systems Review of Systems: Yes all other systems are reviewed and are negative PMFSH Past Medical History Medical History Anxiety and depression Hypertension, essential Lipid disorder Hypokalemia Surgical History No pertinent past surgical history Family History Family History Daughter Mental health disorder Father Mental health disorder Social History Social History Household Members: Spouse Housing: House Alcohol intake: never Patient Tobacco Use Status: Never used Tobacco e-Cigarette/Vaping Use: Never Used Advance Directives: No Advance Directives Information Provided: Yes Do you have a plan to hurt others: No Plan service: No Current occupational status: employed 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 Oriented X3. No acute distress. ENT: Pharynx normal. Oral Mucosa moist clear nasal discharge tympanic membrane intact Neck: Normal inspection. Neck supple. CVS: Normal heart rate and rhythm. Pulses normal. Respiratory: No respiratory distress. Equal air entry bilateral, no wheezing/rales/rhonchi Skin: Skin warm and dry. Normal skin color. Normal skin turgor. Extremities: No lower extremity edema. Neuro: Oriented X 3. Medical Decision Making Lab Data MDM Lab Attestation statement: I reviewed the patient's lab results. Labs: Lab Results 09/24/24 Range/Units 01:36 Influenza Type A (PCR) NEGATIVE (Negative) Influenza Type B (PCR) NEGATIVE (Negative) RSV RNA Qual (PCR) NEGATIVE (Negative) SARS-CoV-2 RNA (RT-PCR) NEGATIVE (Negative) S. pyogenes GrpA BENJI Negative (Negative) Independent Interpretation I performed an independent interpretation of an: Plain X-Ray Interpretation: NAD Radiology Impression Discussion of test interpretation with radiology: I have reviewed the radiologist's reading. Discharge Plan Discharge Clinical Impression: Bronchitis Patient Disposition: Home, Self-Care Instructions: Acute Bronchitis (ED) Additional Instructions: Rest at home Drink plenty of fluids Take antibiotics and cough syrup as prescribed Follow up with your PCP if not better Prescriptions: New codeine-guaifenesin 10-100 mg/5 mL liquid 10 ml PO Q6H PRN (Reason: cough) Qty: 237 0RF cefuroxime axetil 500 mg tablet 500 mg PO BID 7 Days Qty: 14 0RF No Action buspirone 5 mg tablet 5 mg PO TID PRN (Reason: anxiety) 30 Days Qty: 90 0RF mirtazapine 15 mg tablet 15 mg PO BEDTIME Qty: 30 0RF escitalopram oxalate 20 mg tablet 20 mg PO DAILY 90 Days Qty: 90 0RF atenolol 100 mg tablet 100 mg PO DAILY 90 Days Qty: 90 0RF lisinopril 5 mg tablet 5 mg PO DAILY Qty: 90 0RF simvastatin 20 mg tablet 20 mg PO DAILY Qty: 90 0RF lorazepam 0.5 mg tablet 0.5 mg PO DAILY PRN (Reason: anxiety) Qty: 30 0RF diclofenac sodium [Voltaren Arthritis Pain] 1 % gel 2 g topical QID PRN Rx Instructions: apply to single elbow, wrist or hand; for hand includes palm/fingers/back of hand Stand Alone Forms: Work/School Release Print Language: Croatian
[2024-09-24] MEDS: cefuroxime axetiL 500 MG TABLET PO (03:51)
[2024-09-24] MEDS: guaiFEN/Codeine SF 200/20/10ML 10 ML LIQUID PO (03:51)
[2024-09-24 03:53] VITALS: BP 138/87; PULSE 72; RESP 18; TEMP 36.7; O2SAT 97
== END 2024-09-24 03:58 | disposition home or self-care (01) ==
PROVIDERS: Emergency Provider Internal Medicine
DX: J40 Bronchitis, not specified as acute or chronic (principal); R05.9 Cough, unspecified; J02.9 Acute pharyngitis, unspecified; R50.9 Fever, unspecified; R06.02 Shortness of breath; Z03.818 Encounter for observation for suspected exposure to other biological agents ruled out; I10 Essential (primary) hypertension; E78.5 Hyperlipidemia, unspecified; Z79.899 Other long term (current) drug therapy; Z79.02 Long term (current) use of antithrombotics/antiplatelets
CPT/HCPCS: 0241U; 71046; 87651; 99283

== ENCOUNTER → 2024-09-24 01:45 | Outpatient (BNV) | payer BC, SELFPAY | PROVIDERS: Emergency Provider Internal Medicine; Visit Provider Radiology Diagnostic Radiology | DX: R05.9 Cough, unspecified (principal); R06.02 Shortness of breath | CPT/HCPCS: 71046 ==

== ENCOUNTER 2024-10-26 14:30 | Outpatient (AMB) | payer BC, SELFPAY ==
--- OUTSIDE RECORDS SUMMARY | 2024-10-26 14:34 | XMS_ITS | Clinical Summary ---
[facility] it Address [address] [place] [address] Care Team Providers Care Auditing Clerk Name Role Phone Unavailable Primary Care Provider Unavailabl e Social History Tobacco Use Types Packs/Day Years Used Date Smoking Tobacco: Never Assessed Sex and Gender Information Value Date Recorded Sex Assigned at Not on file Gender Identity Not on file Sexual Orientation Not on file Plan of Treatment Health Maintenance Due Date Last Done Comments DTaP,Tdap,and Td Vaccines (1 - Tdap) 1996 Hepatitis B Vaccines (1 of 3 - 19+ 3-dose series) 1996 Cervical Cancer Screening: Pap Smear 1998 Colorectal Cancer Screening: Colonoscopy 08/20/2022 Depression Screening 08/20/2022 HIV Screening 08/20/2022 Hepatitis C Screening 08/20/2022 Social Influencers of Health Screening 08/20/2022 COVID-19 Vaccine ( season) 2024 Influenza Vaccine (#1) 2024 Breast Cancer Screening 07/13/2026 07/13/20 24, 07/11/2023, 05/02/2022, Additional history exists HIB Vaccines Aged Out No longer eligi ble based on patient's age to complete this topic HPV Vaccines Aged Out No longer eligi ble based on patient's age to complete this topic Hepatitis A Vaccines Aged Out No long er eligible based on patient's age to complete this topic IPV Vaccines Aged Out No longer eligi ble based on patient's age to complete this topic MMR Vaccines Aged Out No longer eligi ble based on patient's age to complete this topic Meningococcal ACWY Vaccine Aged Out N o longer eligible based on patient's age to complete this topic Pneumococcal Vaccine: Pediatrics (0 to 5 Years) and At-Risk Patients (6 to 64 Years) Aged Out No longer eligible based on patient's age to complete this topic RSV Immunization Patients Under 20 months Aged Out No longer eligible based on patient's age to complete this topic Varicella Vaccines Aged Out No longer eligible based on patient's age to complete this topic Procedures Procedure Name Priority Date/Time Associated Diagnosis Comments KELLY SCREENING DIGITAL Routine 07/13/2024 3:57 PM EDT from Last 3 Months or Most Recently Relevant to Health Maintenance Results * KELLY SCREENING DIGITAL (07/13/2024 3:57 PM EDT) Anatomical Region Laterality Modality Mammography 07/13/2024 1:47 PM EDT Narrative 07/13/2024 3:57 PM EDT [facility] Diagnostic Imaging Department [address] [place], [place] [id number] Patient: ??ELIZABETH SKINNER ?/Age/Sex: 1975 - 48 - F Unit#: ??[id number] ? Location/Status: ??SPDIMAM/REG CLI ? Mnemonic/Ordering Site: ??DIGSC/SPMAM Ordering Physician: ??SHAKIR MILLIGAN MD Kelly Screening Digital - 07/13/24 - 1409 Report Status:Signed EXAM: [facility] Screening Digital EXAM DATE AND TIME: 07/13/2024 2:09 PM HISTORY: ??Annual screening COMPARISON: ??07/11/2023, 05/02/2022, 04/18/2021, 03/31/2020 and 12/09/2018 TECHNIQUE: Bilateral digital breast tomosynthesis was performed in the CC and MLO projections. Computer aided detection with [employer] 7.2-H and [employer] 3D 3.1 was employed. TISSUE DENSITY: b. There are scattered areas of fibroglandular density. FINDINGS: No suspicious masses, grouped microcalcifications, or areas of architectural distortion are seen. The skin and vascularity are unremarkable. IMPRESSION: Stable mammographic appearance of the breasts. ??No evidence of malignancy is seen. A negative mammogram in the presence of a clinically suspicious palpable abnormality does not preclude the possibility of malignancy or alter the indications for biopsy. BI-RADS: ??Category 1: Negative RECOMMENDATION(S): 1: Routine screening mammogram BILATERAL in 1 year. Dictating Physician: ??ISAK ROSENTHAL MD Electronically Signed by: ??ISAK ROSENTHAL MD Dic Date/Time: ??07/13/24 1555 Sign date/Time: ??07/13/24 1557 Procedure Note Isak Rosenthal MD - 07/20/2024 [facility] Diagnostic Imaging Department [address] [place], [place] [id number] Patient: ELIZABETH SKINNER./Age/Sex: 1975 - 48 - F Unit#: [id number] Location/Status: SPDIMAM/REG CLI Mnemonic/Ordering Site: [facility] Ordering Physician: SHAKIR MILLIGAN MD [facility] Screening Digital - 07/13/24 - 1409 Report Status:Signed EXAM: [facility] Screening Digital EXAM DATE AND TIME: 07/13/2024 2:09 PM HISTORY: Annual screening COMPARISON: 07/11/2023, 05/02/2022, 04/18/2021, 03/31/2020 and 12/09/2018 TECHNIQUE: Bilateral digital breast tomosynthesis was performed in the CCand MLO projections. Computer aided detection with [employer] 7.2-H and[employer] 3D 3.1 was employed. TISSUE DENSITY: b. There are scattered areas of fibroglandular density. FINDINGS: No suspicious masses, grouped microcalcifications, or areas ofarchitectural distortion are seen. The skin and vascularity are unremarkable. IMPRESSION: Stable mammographic appearance of the breasts. No evidence of malignancyis seen. A negative mammogram in the presence of a clinically suspicious palpable abnormality does not preclude the possibility of malignancy or alter the indications for biopsy. BI-RADS: Category 1: Negative RECOMMENDATION(S): 1: Routine screening mammogram BILATERAL in 1 year. Dictating Physician: ISAK ROSENTHAL MD Electronically Signed by: ISKA ROSENTHAL MD Dic Date/Time: 07/13/24 1555 Sign date/Time: 07/13/24 1550 Shakir Milligan MD IMG BI PROCEDURES from Last 3 Months or Most Recently Relevant to Health Maintenance
[2024-10-26 14:37] VITALS: BP 120/86; PULSE 76; RESP 16; O2SAT 99; BMI 27.7
--- NOTE | 2024-10-26 14:37 | A.OFFPC_ITS ---
Vital Signs 10/26/24 14:37 Height 5 ft 3 in Weight 156 lb 8 oz BMI 27.7 BP 120/86 Blood Pressure Location Rt brachial Position Sitting Respiration 16 Pulse 76 Pulse Source Pulse Oximeter Pulse Oximetry (%) 99 Oxygen Delivery Method Room Air Intake Visit Reasons: Annual PE Allergies No Known Allergies Allergy (Verified 10/26/24 14:39) Medication List - Last Reconciled 10/26/24 by Beni Moeller MD atenolol 100 mg PO DAILY 90 days buspirone 5 mg PO TID PRN 30 days diclofenac sodium 1% (Voltaren Arthritis Pain) 2 grams topical QID PRN escitalopram oxalate 20 mg PO DAILY 90 days lisinopril 5 mg PO DAILY lorazepam 0.5 mg PO DAILY PRN mirtazapine 15 mg PO BEDTIME simvastatin 20 mg PO DAILY Tobacco use date assessed: 10/26/24 Dental Screening Dental Screen Date: 10/26/24 Did you have a dental visit in the last 12 months?: Yes Did you have a dental problem in the last 6 months where you did not have access to dental care?: No Was dental information given to patient?: Patient has dentist HPI Annual PE HPI Details Physical exam appointment - The patient is a 48-year-old female pr esenting for a wellness evaluation and assessment of her current medication regimen. - She has a history of generalized anxie ty disorder, which shows improvement with daily use of buspirone 5 mg, noting significant symptom relief. Patient is also on escitalopram 20 mg and lorazepam 0.5 mg p.r.n. She takes about 2 times a week - Essential hypertension has shown varia ble readings; however, the current blood pressure is stable at 120/86 mm Hg. Previous readings indicated fluctuations, notably reaching 140/85 mm Hg. - Hyperlipidemia management continues wi th simvastatin 20 mg. - The patient experiences chronic insomn ia, for which she takes mirtazapine 15 mg, using half a dose effectively to aid sleep. - Reports of eczema affecting her hands are managed through regular home-based treatments, maintaining the condition under control. Health Maintenance - Flu vaccine discussed, agreed to recei ve during the visit. - Mammogram completed in June 2024. - [facility] visit last occurred in November on a biennial schedule. - Colonoscopy planning initiated due to family history. - Labs due for follow-up, fasting prefer red for upcoming tests. Medications - Atenolol 100 mg for hypertension manag ement - Buspirone 5 mg for generalized anxiety disorder (now taken daily) - Citalopram 20 mg for anxiety and depre ssion - Lisinopril 5 mg for blood pressure - Metastepine for insomnia management - Simvastatin 20 mg for hyperlipidemia - Lorazepam for anxiety, taken as needed , approximately once or twice weekly Patient Instructions - Monitor blood pressure regularly, ensu ring to sit calmly for five minutes prior to checking. - Continue current medication regimen as directed. - Follow up fasting blood tests for pranay amita lab work. - Prepare for an upcoming colonoscopy ap pointment with instructions to be provided by the healthcare team. Review of Systems - Cardiovascular: Denies chest pain. - Respiratory: Denies shortness of breat h. - Dermatologic: Reports controlled eczem a on hands. - Gastrointestinal: Denies nausea, vomit ing, diarrhea, or constipation. - Neurologic: Denies headaches. - General: No fever no chills - Neurological: No headaches no dizzin ess - Ear nose throat: No sore throat no hearing difficulty no ear painons - Endocrine: No polyuria polydipsia no heat intolerance - Genitourinary: No dysuria Physical Exam General: Cooperative, healthy appearing, comfortable, no acute distress Orientation: Patient oriented x3 Limitations: None Head: Normal to inspection Ears: Within normal limit visually Nose: Normal external nose present Face and sinus: Normal facial exam Eyes: Appearance normal, extraocular movement intact pupils reactive Neck: Normal visual inspection and supple Respiratory: Normal respiratory effort and able to speak in complete sentences. Clear to auscultation, no stridor Breast exam declined with the patient Cardiovascular: S1 and S2 GI: Normal to inspection. Soft to palpation and nontender, no nausea or vomiting, diarrhea or constipation Skin: Turgor normal, no acute findings, eczema on hands but controlled Neuro: Patient oriented x3, motor sensory intact, balance intact, tandem pass Extremities: Normal to inspection [facility] Medical History Anxiety and depression Hypertension, essential Lipid disorder Hypokalemia Surgical History No pertinent past surgical history Family History Daughter Mental health disorder Father Mental health disorder Social History Household Members: Spouse Housing: House Alcohol intake: never Patient Tobacco Use Status: Never used Tobacco e-Cigarette/Vaping Use: Never Used service: No Current occupational status: employed 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 1. Little interest or pleasure in doing things: several days 2. Feeling down, depressed, or hopeless: several days 3. Trouble falling or staying asleep, or sleeping too much: more than half the days 4. Feeling tired or having little energy: more than half the days 5. Poor appetite or overeating: several days 6. Feeling bad about yourself - or that you are a failure or have let yourself or your family down: not at all 7. Trouble concentrating on things, such as reading the newspaper or watching television: not at all 8. Moving or speaking so slowly that other people could have noticed. Or the opposite - being so fidgety or restless that you have been moving around a lot more than usual: not at all 9. Thoughts that you would be better off or of hurting yourself in some way: not at all Total score: 7 Depression Screening Interpretation: Negative Depression Screening Done: Yes 87657 - PHQ-9 Billing: Yes Source: Developed by Drs. Everette Hughes, Tali Dwyer, Niraj Bryan and colleagues, with an educational shawnee from [employer]. Thrive Questionnaire Date Thrive assessed: 10/26/24 I am a: Patient What is your living situation today?: I have a steady place to live Within the past 12 months, did the food you bought not last and you didn't have the money to get more?: Never true Within the past 12 months, did you worry whether your food would run out before you got money to buy more?: Never true Do you have trouble paying for medicines?: No Do you have trouble getting transportation to medical appointments?: No Do you have trouble paying your heating and electricity bill?: No Do you have trouble taking care of your child, family member or friend?: No Do you have trouble with day-to-day activities such as bathing, preparing meals, shopping, managing finances, etc.?: No Are you currently unemployed and looking for a job?: No Are you interested in more education?: No Please select the resources that you would like help with: None Currently or been in a relationship where the following occur: No concerns reported THRIVE Score: 0 AUDIT C Alcohol Use Questionnaire (AUDIT-C) 1. How often do you have a drink containing alcohol?: Monthly or less 2. How many drinks containing alcohol do you have on a typical day when you are drinking?: 3 or 4 3. How often do you have six or more drinks on one occasion?: Never Total Score: 2 Score Reviewed/Action Taken: Yes BEN-7 AMB Questionnaire BEN-7 Date BEN - 7 assessed: 05/25/24 Source: Developed by Drs. Everette Hughes, Tali Dwyer, Niraj Bryan and colleagues, with an educational shawnee from [employer]. Physical exam (Primary Care) Vital Signs: Last Vital Signs Pulse 76 10/26/24 14:37 Resp 16 10/26/24 14:37 BP 120/86 10/26/24 14:37 Pulse Ox 99 10/26/24 14:37 Oxygen Delivery Method Room Air 10/26/24 14:37 BMI result Body Mass Index 27.7 Tobacco/Smoking Status: Tobacco use Status Tobacco use date assessed 10/26/24 10/26/24 14:40 Patient Tobacco Use Status Never used Tobacco 10/26/24 14:40 e-Cigarette/Vaping Use Never Used 10/26/24 14:40 PHQ-9: PHQ-9 Score PHQ-9: Total score 7 10/26/24 14:59 Depression Screening Interpretation: Negative Thrive Assessment: Date of Thrive Assessment Date Thrive assessed 10/26/24 10/26/24 14:40 Currently or been in a relationship where the following occur: No concerns reported Office Procedures Flu Questionnaire Does the patient have a severe egg allergy?: No Does the patient have severe life threatening allergies?: No Does the patient have a fever or illness today?: No Has the patient ever had Guillain-[place] Syndrome?: No Has the patient ever had any past reaction to a flu shot?: No Immunizations Fluarix Triv [id number] (PF) 45 mcg (15 mcg x 3)/0.5 mL IM syringe Performing Provider: Beni Moeller MD Performing Location: [facility] Administered by: Sonal Marcum CMA on 10/26/24 14:59 Dose Route Admin Location Dispensed Lot Number Expiration Date [employer] Room Associate 0.5 mL IM Left Deltoid 0.5 mL [id number] 03/21/25 [id number] Schedule C Systems VIS Given Date VIS Provided VIS Publication Date 10/26/24 Single Vaccine 21 Eligibility Eligibility Date Funding Source Not [facility] Eligible 10/26/24 Private Coding Level of Care Code Est Pt Level 3 (41384) Est Pt Prev Care 40-64y(72072) Diagnoses Encounter for general adult medical examination with abnormal findings Z00.01 Impaired fasting blood sugar R73.01 LFT elevation R79.89 Difficulty sleeping G47.9 Anxiety, generalized F41.1 Additional Codes PHQ-9 - 77553 - PHQ-9 Billing: Yes ([id number]) Assessment & Plan Assessment & Plan (1) Encounter for general adult medical examination with abnormal findings: Code(s): Z00.01 - Encounter for general adult medical examination with abnormal findings Category: Medical (2) Impaired fasting blood sugar: Code(s): R73.01 - Impaired fasting glucose Category: Medical (3) LFT elevation: Code(s): R79.89 - Other specified abnormal findings of blood chemistry Category: Medical (4) Difficulty sleeping: Code(s): G47.9 - Sleep disorder, unspecified Category: Medical (5) Anxiety, generalized: Code(s): F41.1 - Generalized anxiety disorder Category: Medical Plan Physical exam appointment - The patient is a 48-year-old female presenting for a wellness evaluation and assessment of her current medication regimen. - She has a history of generalized anxiety disorder, which shows improvement with daily use of buspirone 5 mg, noting significant symptom relief. Patient is also on escitalopram 20 mg and lorazepam 0.5 mg p.r.n. She takes about 2 times a week - Essential hypertension has shown variable readings; however, the current blood pressure is stable at 120/86 mm Hg. Previous readings indicated fluctuations, notably reaching 140/85 mm Hg. - Hyperlipidemia management continues with simvastatin 20 mg. - The patient experiences chronic insomnia, for which she takes mirtazapine 15 mg, using half a dose effectively to aid sleep. - Reports of eczema affecting her hands are managed through regular home-based treatments, maintaining the condition under control. Health Maintenance - Flu vaccine discussed, agreed to receive during the visit. - Mammogram completed in June 2024. - [facility]OR [facility]AT[facility] visit last occurred in November on a biennial schedule. - Colonoscopy planning initiated due to family history. - Labs due for follow-up, fasting preferred for upcoming tests. Medications - Atenolol 100 mg for hypertension management - Buspirone 5 mg for generalized anxiety disorder (now taken daily) - Citalopram 20 mg for anxiety and depression - Lisinopril 5 mg for blood pressure - Metastepine for insomnia management - Simvastatin 20 mg for hyperlipidemia - Lorazepam for anxiety, taken as needed, approximately once or twice weekly Patient Instructions - Monitor blood pressure regularly, ensuring to sit calmly for five minutes prior to checking. - Continue current medication regimen as directed. - Follow up fasting blood tests for updated lab work. - Prepare for an upcoming colonoscopy appointment with instructions to be provided by the healthcare team. Orders: Orders Complete Blood Count Auto Diff Today F41.1 - Generalized anxiety disorder, G47.9 - Sleep disorder, unspecified, R73.01 - Impaired fasting glucose, R79.89 - Other specified abnormal findings of blood chemistry, Z00.01 - Encounter for general adult medical examination with abnormal findings Comprehensive [place]. Panel Fast Today F41.1 - Generalized anxiety disorder, G47.9 - Sleep disorder, unspecified, R73.01 - Impaired fasting glucose, R79.89 - Other specified abnormal findings of blood chemistry, Z00.01 - Encounter for general adult medical examination with abnormal findings Lipid Panel Today F41.1 - Generalized anxiety disorder, G47.9 - Sleep disorder, unspecified, R73.01 - Impaired fasting glucose, R79.89 - Other specified abnormal findings of blood chemistry, Z00.01 - Encounter for general adult medical examination with abnormal findings Vitamin D 25-OH (D2 and D3) Today F41.1 - Generalized anxiety disorder, G47.9 - Sleep disorder, unspecified, R73.01 - Impaired fasting glucose, R79.89 - Other specified abnormal findings of blood chemistry, Z00.01 - Encounter for general adult medical examination with abnormal findings TSH reflex Free T4 Today F41.1 - Generalized anxiety disorder, G47.9 - Sleep disorder, unspecified, R73.01 - Impaired fasting glucose, R79.89 - Other specified abnormal findings of blood chemistry, Z00.01 - Encounter for general adult medical examination with abnormal findings Hemoglobin A1c Today F41.1 - Generalized anxiety disorder, G47.9 - Sleep disorder, unspecified, R73.01 - Impaired fasting glucose, R79.89 - Other specified abnormal findings of blood chemistry, Z00.01 - Encounter for general adult medical examination with abnormal findings Influenza [id number] Immunization Today Z23 - Encounter for immunization Referrals Open Access Screening Colonoscopy Referral Z12.11 - Encounter for screening for malignant neoplasm of colon
== END 2024-10-26 15:01 | disposition home or self-care (01) ==
PROVIDERS: PCP Internal Medicine; Visit Provider Internal Medicine
DX: Z00.00 Encounter for general adult medical examination without abnormal findings (principal); R73.01 Impaired fasting glucose; R79.89 Other specified abnormal findings of blood chemistry; G47.9 Sleep disorder, unspecified; F41.1 Generalized anxiety disorder; Z23 Encounter for immunization

== ENCOUNTER → 2024-10-26 14:30 | Outpatient (BNVA) | payer BC, SELFPAY | PROVIDERS: PCP Internal Medicine; Visit Provider Internal Medicine | DX: Z00.01 Encounter for general adult medical examination with abnormal findings (principal); Z23 Encounter for immunization; R73.01 Impaired fasting glucose; R79.89 Other specified abnormal findings of blood chemistry; G47.9 Sleep disorder, unspecified; F41.1 Generalized anxiety disorder; Z79.899 Other long term (current) drug therapy | CPT/HCPCS: 90471; 90656; 96127 ==

== ENCOUNTER 2025-02-28 11:13 | Outpatient (REF) | payer BC, SELFPAY ==
--- OUTSIDE RECORDS SUMMARY | 2025-02-28 12:51 | XMS_ITS | Clinical Summary ---
Author Organization [facility] it Address [address] [place] [address] Care Team Providers Care Fisherman Helper Name Role Phone Unavailable Primary Care Provider Unavailabl e Social History Tobacco Use Types Packs/Day Years Used Date Smoking Tobacco: Never Assessed Comments Unknown Sex and Gender Information Value Date Recorded Sex Assigned at Not on file Legal Sex Female 11:42 AM EST Gender Identity Not on file Sexual Orientation [...] of Health Screening 08/20/2022 COVID-19 Vaccine ( - season) 2024 Influenza Vaccine (Season Ended) 2025 Breast Cancer Screening 07/13/2026 07/13/20 24, 07/11/2023, [...] patient's age to complete this topic Meningococcal B Vaccine Aged Out No l onger eligible based on patient's age to complete [...] PM EDT Narrative 07/13/2024 3:57 PM EDT [facility] Diagnostic Imaging Department [address] [place] [address] Patient: ??ELIZABETH SKINNER ?/Age/Sex: 1975 - 48 - F Unit#: ??[id number] ? Location/Status: ??SPDIMAM/REG CLI ? Mnemonic/Ordering Site: ??DIGSC/SPMAM Ordering Physician: ??SHAKIR MILLIGAN MD [facility] Screening Digital - 07/13/24 - 1409 Report Status:Signed EXAM: [facility] Screening Digital EXAM DATE AND TIME: 07/13/2024 2:09 PM HISTORY: ??Annual screening COMPARISON: ??07/11/2023, 05/02/2022, 04/18/2021, 03/31/2020 and 12/09/2018 TECHNIQUE: Bilateral digital breast tomosynthesis was performed in the CC and MLO projections. Computer aided detection with Fileforce 7.2-H and CFX BATTERY 3D 3.1 was employed. TISSUE DENSITY: b. [...] by: ??ISAK ROSENTHAL MD Dic Date/Time: ??07/13/24 1553 Sign date/Time: ??07/13/24 1557 Procedure Note Isak Rosenthal MD - 07/20/2024 [facility] Diagnostic Imaging Department [address] [place] [address] Patient: ELIZABETH SKINNER D.O.B./Age/Sex: 1975 - 48 - F Unit#: [id number] Location/Status: SPDIMAM/REG CLI Mnemonic/Ordering Site: [facility] Ordering Physician: SHAKIR MILLIGAN MD [facility] Screening Digital - 07/13/24 - 1409 Report Status:Signed EXAM: [facility] Screening Digital EXAM DATE AND TIME: 07/13/2024 2:09 PM HISTORY: Annual screening COMPARISON: 07/11/2023, 05/02/2022, 04/18/2021, 03/31/2020 and 12/09/2018 TECHNIQUE: Bilateral digital breast tomosynthesis was performed in the CCand MLO projections. Computer aided detection with [employer] 7.2-H andCFX BATTERY 3D 3.1 was employed. TISSUE DENSITY: b. [...] Physician: ISAK ROSENTHAL MD Electronically Signed by: ISAK ROSENTHAL MD Dic Date/Time: 07/13/24 1555 Sign date/Time: 07/13/24 1553 Shakir Milligan MD IMG BI PROCEDURES Final Result from Last 3 Months or Most Recently Relevant to Health Maintenance
[2025-02-28 13:18] LABS: MANUAL DIFF FLAG NO
[2025-02-28 13:31] LABS: Basophils Absolute Auto 0.1 X10*3/uL (0.0-0.2); Basophils Percent Auto 0.7 % (0-2); Eosinophils Absolute Auto 0.1 X10*3/uL (0.0-0.4); Eosinophils Percent Auto 0.9 % (0-4); Hematocrit 39.2 % (37.0-47.0); Imm Gran Abs Auto 0.02 X10*3/uL (0.00-0.03); Imm Gran Pct Auto 0.3 % (0.0-0.4); Lymphocytes Absolute Auto 2.5 X10*3/uL (1.2-4.9); Lymphocytes Percent Auto 37.5 % (20-40); Mean Corpuscular HGB Conc 33.2 g/dl (31.0-35.0); Mean Corpuscular Hemoglobin 30.7 pg (27.0-33.0); Mean Corpuscular Volume 92.7 fL (80.0-98.0); Mean Platelet Volume 12.3 fL (9.4-12.3); Monocytes Absolute Auto 0.5 X10*3/uL (0.1-1.2); Monocytes Percent Auto 7.9 % (2-11); Neutrophils Absolute Auto 3.6 x10*3/uL (2.0-8.3); Neutrophils Percent Auto 52.7 % (45-73); Platelet Count 211 X10*3/uL (160-400); Red Blood Count 4.23 X10*6/uL (4.20-5.50); Red Cell Distribution Width 12.2 % (11.0-16.0); White Blood Count 6.7 X10*3/uL (4.8-10.8)
[2025-02-28 13:46] LABS: Estimated Average Glucose 114 mg/dL; Hemoglobin A1c % 5.6 % (<6.0); Total Hemoglobin (HGBA1C) 3376.2519 umol/L
[2025-02-28 14:16] LABS: Alanine Aminotransferase 28 U/L (0-31); Albumin Level 4.6 g/dL (3.5-5.0); Alkaline Phosphatase 57 U/L (39-117); Anion Gap 14 (12-20); Aspartate Amino Transferase 22 U/L (5-31); Bilirubin Total 0.7 mg/dL (0.0-1.0); Blood Urea Nitrogen 12 mg/dL (9-16); Calcium 9.3 mg/dL (8.4-10.2); Carbon Dioxide 26 mmol/L (22-29); Chloride 104 mmol/L (96-108); Cholesterol 185 mg/dL (<200); Estimated Glomerular Filt Rate > 60; Glucose Fasting 119 mg/dL (60-99); HDL Cholesterol 42 mg/dL (>40); LDL Cholesterol Calculated 113 mg/dL (<100); Potassium 3.7 mmol/L (3.3-5.1); Sodium 140 mmol/L (135-145); Total Protein 7.1 g/dL (6.5-8.0); Triglycerides 150 mg/dL (<150)
[2025-03-05 17:33] LABS: Vitamin D 25-OH, D2 <4 ng/mL; Vitamin D 25-OH, D3 14 ng/mL; Vitamin D 25-OH, Total 14 ng/mL (30-100)
== END 2025-02-28 11:14 | disposition home or self-care (01) ==
LOC: HO.HMGCLDS 11:13
PROVIDERS: PCP Internal Medicine; Visit Provider Internal Medicine
DX: Z00.01 Encounter for general adult medical examination with abnormal findings (principal); F41.1 Generalized anxiety disorder; R73.01 Impaired fasting glucose; R79.89 Other specified abnormal findings of blood chemistry; G47.9 Sleep disorder, unspecified
CPT/HCPCS: 36415; 80053; 80061; 82306; 83036; 84443; 85025

== ENCOUNTER 2025-03-01 11:22 | Outpatient (AMB) | payer BC, SELFPAY ==
--- NOTE | 2025-03-01 11:29 | A.OFFPC_ITS ---
Vital Signs 03/01/25 11:31 Height 5 ft 3 in Weight 158 lb 2 oz BMI 28.0 BP 126/88 Blood Pressure Location Lt brachial Position Sitting Pulse 66 Pulse Source Pulse Oximeter Pulse Oximetry (%) 98 Oxygen Delivery Method Room Air Intake Visit Reasons: 3 month follow up Allergies No Known Allergies Allergy (Verified 03/01/25 11:32) Medication List - Last Reconciled 03/01/25 by Beni Moeller MD atenolol 100 mg PO DAILY 90 days buspirone 5 mg PO TID PRN 30 days diclofenac sodium 1% (Voltaren Arthritis Pain) 2 grams topical QID PRN escitalopram oxalate 20 mg PO DAILY 90 days lisinopril 5 mg PO DAILY lorazepam 0.5 mg PO DAILY PRN mirtazapine 15 mg PO BEDTIME simvastatin 20 mg PO DAILY Tobacco use date assessed: 03/01/25 Dental Screening Dental Screen Date: 03/01/25 Did you have a dental visit in the last 12 months?: Yes Did you have a dental problem in the last 6 months where you did not have access to dental care?: No Was dental information given to patient?: Patient has dentist HPI 3 month follow up HPI Details - The patient is a 49-year-old female pr esenting for three-month follow-up appointment - She has a history of generalized anxie ty disorder, which shows improvement with daily use of buspirone 5 mg. Patient is also on escitalopram 20 mg and lorazepam 0.5 mg p.r.n. She takes about 2 times a week, however having difficulty sleeping at night even though taking half a tablet of mirtazapine 15 mg Patient says that her mind keep racing and she can not shut it down If she listens do news she will start feeling that it might happen to her I am stopping mirtazapine and starting her on Seroquel 25 mg patient is to start with half a tablet for a week and then full tablet If she benefitted from the medication patient is to get back to me for refill - Essential hypertension has shown varia ble readings; however, the current blood pressure is stable - Hyperlipidemia management continues wi th simvastatin 20 mg. Medications - Atenolol 100 mg for hypertension manag ement - Buspirone 5 mg for generalized anxiety disorder (now taken daily) - escitalopram 20 mg for anxiety and dep ression - Lisinopril 5 mg for blood pressure - mirtazapine for insomnia management di scontinued - Simvastatin 20 mg for hyperlipidemia - Lorazepam for anxiety, taken as needed , approximately once or twice weekly Patient Instructions - Monitor blood pressure regularly, ensu ring to sit calmly for five minutes prior to checking. - Continue current medication regimen as directed. - lab reports reviewed they are stable - start Seroquel 25 mg half a tablet for a week and then full tablet Get back to me to update me Review of Systems - General: No fever no chills - Neurological: No headaches no dizzin ess - Ear nose throat: No sore throat no hearing difficulty no ear painons - Endocrine: No polyuria polydipsia no heat intolerance - Genitourinary: No dysuria Physical Exam General: Cooperative, healthy appearing, comfortable, no acute distress Orientation: Patient oriented x3 Head: Normal to inspection HEENT: Within normal limit Neck: Normal visual inspection and supple Respiratory: Normal respiratory effort and able to speak in complete sentences. Clear to auscultation, no stridor Breast exam declined with the patient Cardiovascular: S1 and S2 regular in rate and rhythm GI: No complaints Skin: Turgor normal, Neuro: Patient oriented x3, motor sensory intact Extremities: Normal to inspection [facility] Medical History Anxiety and depression Hypertension, essential Lipid disorder Hypokalemia Surgical History No pertinent past surgical history Family History Daughter Mental health disorder Father Mental health disorder Social History Household Members: Spouse Housing: House Alcohol intake: never Patient Tobacco Use Status: Never used Tobacco e-Cigarette/Vaping Use: Never Used service: No Current occupational status: employed 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 1. Little interest or pleasure in doing things: several days 2. Feeling down, depressed, or hopeless: not at all 3. Trouble falling or staying asleep, or sleeping too much: not at all 4. Feeling tired or having little energy: several days 5. Poor appetite or overeating: not at all 6. Feeling bad about yourself - or that you are a failure or have let yourself or your family down: not at all 7. Trouble concentrating on things, such as reading the newspaper or watching television: not at all 8. Moving or speaking so slowly that other people could have noticed. Or the opposite - being so fidgety or restless that you have been moving around a lot more than usual: not at all 9. Thoughts that you would be better off or of hurting yourself in some way: not at all Total score: 2 Depression Screening Interpretation: Negative Depression Screening Done: Yes 91792 - PHQ-9 Billing: Yes Source: Developed by Drs. Everette Hughes, Tali Dwyer, Niraj Bryan and colleagues, with an educational shawnee from [employer]. Thrive Questionnaire Date Thrive assessed: 03/01/25 I am a: Patient What is your living situation today?: I have a steady place to live Within the past 12 months, did the food you bought not last and you didn't have the money to get more?: Never true Within the past 12 months, did you worry whether your food would run out before you got money to buy more?: Never true Do you have trouble paying for medicines?: No Do you have trouble getting transportation to medical appointments?: No Do you have trouble paying your heating and electricity bill?: No Do you have trouble taking care of your child, family member or friend?: No Do you have trouble with day-to-day activities such as bathing, preparing meals, shopping, managing finances, etc.?: No Are you currently unemployed and looking for a job?: No Are you interested in more education?: No Please select the resources that you would like help with: None Currently or been in a relationship where the following occur: No concerns reported THRIVE Score: 0 AUDIT C Alcohol Use Questionnaire (AUDIT-C) 1. How often do you have a drink containing alcohol?: Monthly or less 2. How many drinks containing alcohol do you have on a typical day when you are drinking?: 3 or 4 3. How often do you have six or more drinks on one occasion?: Never Total Score: 2 Score Reviewed/Action Taken: Yes BEN-7 AMB Questionnaire BEN-7 Date BEN - 7 assessed: 03/01/25 Feeling nervous, anxious, or on edge: 0 = Not at all Not being able to stop or control worryin = Several days Worrying too much about different things: 0 = Not at all Trouble relaxin = Several days Being so restless that it is hard to sit still: 0 = Not at all Becoming easily annoyed or irritable: 0 = Not at all Feeling afraid as if something awful might happen: 0 = Not at all Total BEN-7 score (0-4 normal; 5-9 mild; 10-14 moderate; 15-21 severe): 2 Source: Developed by Drs. Everette Hughes, Tali Dwyer, Niraj Bryan and colleagues, with an educational shawnee from [employer]. BEN-7 Assessment Billing BEN-7 Assessment Tool: BEN-7 Assessment 88611 Physical exam (Primary Care) Vital Signs: Last Vital Signs Pulse 66 03/01/25 11:31 BP 126/88 03/01/25 11:31 Pulse Ox 98 03/01/25 11:31 Oxygen Delivery Method Room Air 03/01/25 11:31 BMI result Body Mass Index 28.0 Tobacco/Smoking Status: Tobacco use Status Tobacco use date assessed 03/01/25 03/01/25 11:33 Patient Tobacco Use Status Never used Tobacco 03/01/25 11:31 e-Cigarette/Vaping Use Never Used 03/01/25 11:31 PHQ-9: PHQ-9 Score PHQ-9: Total score 2 03/01/25 11:33 Depression Screening Interpretation: Negative Thrive Assessment: Date of Thrive Assessment Date Thrive assessed 03/01/25 03/01/25 11:33 Currently or been in a relationship where the following occur: No concerns reported Coding Level of Care Code Est Pt Level 4 (77079) Diagnoses Racing thoughts R41.89 Impaired fasting blood sugar R73.01 LFT elevation R79.89 Difficulty sleeping G47.9 Anxiety, generalized F41.1 Hypertension, essential I10 Additional Codes BEN-7 Assessment Billing - BEN-7 Assessment Tool: BEN-7 Assessment 33538 ([id number]) PHQ-9 - 87809 - PHQ-9 Billing: Yes ([id number]) Assessment & Plan Assessment & Plan (1) Racing thoughts: Code(s): R41.89 - Other symptoms and signs involving cognitive functions and awareness Category: Medical (2) Impaired fasting blood sugar: Code(s): R73.01 - Impaired fasting glucose Category: Medical (3) LFT elevation: Code(s): R79.89 - Other specified abnormal findings of blood chemistry Category: Medical (4) Difficulty sleeping: Code(s): G47.9 - Sleep disorder, unspecified Category: Medical (5) Anxiety, generalized: Code(s): F41.1 - Generalized anxiety disorder Category: Medical (6) Hypertension, essential: Code(s): I10 - Essential (primary) hypertension Category: Medical Plan - The patient is a 49-year-old female presenting for three-month follow-up appointment - She has a history of generalized anxiety disorder, which shows improvement with daily use of buspirone 5 mg. Patient is also on escitalopram 20 mg and lorazepam 0.5 mg p.r.n. She takes about 2 times a week, however having difficulty sleeping at night even though taking half a tablet of mirtazapine 15 mg Patient says that her mind keep racing and she can not shut it down If she listens do news she will start feeling that it might happen to her I am stopping mirtazapine and starting her on Seroquel 25 mg patient is to start with half a tablet for a week and then full tablet If she benefitted from the medication patient is to get back to me for refill - Essential hypertension has shown variable readings; however, the current blood pressure is stable - Hyperlipidemia management continues with simvastatin 20 mg. Medications - Atenolol 100 mg for hypertension management - Buspirone 5 mg for generalized anxiety disorder (now taken daily) - escitalopram 20 mg for anxiety and depression - Lisinopril 5 mg for blood pressure - mirtazapine for insomnia management discontinued - Simvastatin 20 mg for hyperlipidemia - Lorazepam for anxiety, taken as needed, approximately once or twice weekly Patient Instructions - Monitor blood pressure regularly, ensuring to sit calmly for five minutes prior to checking. - Continue current medication regimen as directed. - lab reports reviewed they are stable - start Seroquel 25 mg half a tablet for a week and then full tablet Get back to me to update me Medications: New quetiapine (Seroquel) Start with half a tablet, and then full tablet after 1 week 25 mg PO BEDTIME 30 tabs 0RF Discontinued mirtazapine Discontinued Reason: Doctor's Order 15 mg PO BEDTIME 30 tabs 0RF To sleep
[2025-03-01 11:31] VITALS: BP 126/88; PULSE 66; O2SAT 98; BMI 28.0
--- OUTSIDE RECORDS SUMMARY | 2025-03-01 13:41 | XMS_ITS | Clinical Summary ---
[facility] Organization [facility] it Address [address] [place] [address] Care Team Providers Care Brown Sourer Name Role Phone Unavailable Primary Care Provider [...] PM EDT Narrative 07/13/2024 3:57 PM EDT [facility] Diagnostic Imaging Department [address] [place] [address] Patient: ??ELIZABETH SKINNER ?/Age/Sex: 1975 - 48 - F Unit#: ??[id number] ? Location/Status: ??SPDIMAM/REG CLI ? Mnemonic/Ordering Site: ??DIGSC/SPMAM Ordering Physician: ??SHAKIR MILLIGAN MD [facility] Screening Digital - 07/13/24 - 1409 Report Status:Signed EXAM: [facility] Screening Digital EXAM DATE AND TIME: 07/13/2024 2:09 PM HISTORY: ??Annual screening COMPARISON: ??07/11/2023, 05/02/2022, 04/18/2021, 03/31/2020 and 12/09/2018 TECHNIQUE: Bilateral digital breast tomosynthesis was performed in the CC and MLO projections. Computer aided detection with Browserling 7.2-H and Opentopic 3D 3.1 was employed. TISSUE DENSITY: b. [...] by: ??ISAK ROSENTHAL MD Dic Date/Time: ??07/13/24 1559 Sign date/Time: ??07/13/24 1557 Procedure Note Isak Rosenthal MD - 07/20/2024 [facility] Diagnostic Imaging Department [address] [place] [address] Patient: ELIZABETH SKINNER D.O.B./Age/Sex: 1975 - 48 - F Unit#: [id number] Location/Status: SPDIMAM/REG CLI Mnemonic/Ordering Site: [facility] Ordering Physician: SHAKIR MILLIGAN MD [facility] Screening Digital - 07/13/24 - 1409 Report Status:Signed EXAM: [facility] Screening Digital EXAM DATE AND TIME: 07/13/2024 2:09 PM HISTORY: Annual screening COMPARISON: 07/11/2023, 05/02/2022, 04/18/2021, 03/31/2020 and 12/09/2018 TECHNIQUE: Bilateral digital breast tomosynthesis was performed in the CCand MLO projections. Computer aided detection with Browserling 7.2-H andOpentopic 3D 3.1 was employed. TISSUE DENSITY: b. [...] Dic Date/Time: 07/13/24 1555 Sign date/Time: 07/13/24 1555 Shakir Milligan MD IMG BI PROCEDURES Final Result from Last 3 Months or Most Recently Relevant to Health Maintenance
== END 2025-03-01 11:47 | disposition home or self-care (01) ==
LOC: HO.HMCC 11:23
PROVIDERS: PCP Internal Medicine; Visit Provider Internal Medicine
DX: R41.89 Other symptoms and signs involving cognitive functions and awareness (principal); R73.01 Impaired fasting glucose; R79.89 Other specified abnormal findings of blood chemistry; G47.9 Sleep disorder, unspecified; F41.1 Generalized anxiety disorder; I10 Essential (primary) hypertension

== ENCOUNTER → 2025-03-01 11:22 | Outpatient (BNVA) | payer BC, SELFPAY | PROVIDERS: PCP Internal Medicine; Visit Provider Internal Medicine | DX: R73.01 Impaired fasting glucose (principal); R41.89 Other symptoms and signs involving cognitive functions and awareness; R79.89 Other specified abnormal findings of blood chemistry; G47.9 Sleep disorder, unspecified; F41.1 Generalized anxiety disorder; I10 Essential (primary) hypertension; Z79.899 Other long term (current) drug therapy; Z13.31 Encounter for screening for depression; Z13.30 Encounter for screening examination for mental health and behavioral disorders, unspecified | CPT/HCPCS: 96127 ==

== ENCOUNTER 2025-06-01 11:32 | Outpatient (AMB) | payer BC, SELFPAY ==
[2025-06-01 11:40] VITALS: BP 120/76; PULSE 60; O2SAT 100; BMI 28.2
--- NOTE | 2025-06-01 11:40 | A.OFFPC_ITS ---
Vital Signs 06/01/25 11:40 Weight 159 lb 2 oz BP 120/76 Blood Pressure Location Lt brachial Position Sitting Pulse 60 Pulse Source Pulse Oximeter Pulse Oximetry (%) 100 Intake Visit Reasons: 3 months f/up Allergies No Known Allergies Allergy (Verified 03/01/25 11:32) Tobacco use date assessed: 03/01/25 Dental Screening Dental Screen Date: 03/01/25 [facility] Medical History Anxiety and depression Hypertension, essential Lipid disorder Hypokalemia Surgical History No pertinent past surgical history Family History Daughter Mental health disorder Father Mental health disorder Social History Household Members: Spouse Housing: House Alcohol intake: never Patient Tobacco Use Status: Never used Tobacco e-Cigarette/Vaping Use: Never Used service: No Current occupational status: employed 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 Cognitive needs: No Hearing needs: No Vision needs: Yes Questionnaire Thrive Questionnaire Date Thrive assessed: 10/03/24 I am a: Patient What is your living situation today?: I have a steady place to live Within the past 12 months, did the food you bought not last and you didn't have the money to get more?: Never true Within the past 12 months, did you worry whether your food would run out before you got money to buy more?: Never true Do you have trouble paying for medicines?: No Do you have trouble getting transportation to medical appointments?: No Do you have trouble paying your heating and electricity bill?: No Do you have trouble taking care of your child, family member or friend?: No Do you have trouble with day-to-day activities such as bathing, preparing meals, shopping, managing finances, etc.?: No Are you currently unemployed and looking for a job?: No Are you interested in more education?: No Please select the resources that you would like help with: None Currently or been in a relationship where the following occur: No concerns reported THRIVE Score: 0 BEN-7 AMB Questionnaire BEN-7 Date BEN - 7 assessed: 03/01/25 Source: Developed by Drs. Everette Hughes, Tali Dwyer, Niraj Bryan and colleagues, with an educational shawnee from [employer]. Physical exam (Primary Care) Tobacco/Smoking Status: Tobacco use Status Tobacco use date assessed 03/01/25 03/01/25 11:33 Patient Tobacco Use Status Never used Tobacco 03/01/25 11:31 e-Cigarette/Vaping Use Never Used 03/01/25 11:31 Thrive Assessment: Date of Thrive Assessment Date Thrive assessed 10/03/24 06/01/25 11:33 Currently or been in a relationship where the following occur: No concerns reported Coding
--- NOTE | 2025-06-01 11:43 | MHC.PC.OV ---
Vital Signs 06/01/25 11:40 Height 5 ft 3 in Weight 159 lb 2 oz BMI 28.2 BP 120/76 Blood Pressure Location Lt brachial Position Sitting Pulse 60 Pulse Source Pulse Oximeter Pulse Oximetry (%) 100 Intake Visit Reasons: 3 months f/up Allergies No Known Allergies Allergy (Verified 06/01/25 11:43) Medication List - Last Reconciled 06/01/25 by Beni Moeller MD atenolol 100 mg PO DAILY 90 days buspirone 5 mg PO TID PRN 30 days cholecalciferol (vitamin D3) 25 mcg PO DAILY 90 days diclofenac sodium 1% (Voltaren Arthritis Pain) 2 grams topical QID PRN escitalopram oxalate 20 mg PO DAILY 90 days lisinopril 5 mg PO DAILY lorazepam 0.5 mg PO DAILY PRN quetiapine (Seroquel) 25 mg PO BEDTIME simvastatin 20 mg PO DAILY Tobacco use date assessed: 03/01/25 Dental Screening Dental Screen Date: 03/01/25 HPI 3 months f/up HPI Details History of Present Illness The patient is a 49-year-old female presenting with medication management and follow-up on hypertension, anxiety, and sleep problems. Hypertension: - History of hypertension. - Currently taking atenolol and lisinopril for management. - No recent issues reported with hypertension. Anxiety: - The patient has experienced anxiety in the past. - Taking buspirone and escitalopram to manage anxiety. - No recent psychiatrist consultations, and patient reports no current need. Insomnia: - Previous difficulty with sleep noted. - Recently started on quetiapine (Seroquel) for sleep issues. - Reports significant improvement in sleep, describing the effect as night and day. Medical History: - Hypertension - History of anxiety and depression - Insomnia - Elevated fasting blood sugar (previously noted as high at 119) Medications: - Atenolol for hypertension - Lisinopril for hypertension - Escitalopram for anxiety - Buspirone for anxiety - Lorazepam - Quetiapine for insomnia - Simvastatin - Vitamin D supplement advised Diagnostic Results: - Labs: - CBC was normal. - Metabolic profile was normal. - Kidney function tests were normal. - Fasting blood sugar was elevated at 119. - A1c was 5.6. - Liver enzyme levels were within normal limits. - Cholesterol levels were within acceptable range. - Vitamin D was low. Problem List - Essential Hypertension - Generalized Anxiety Disorder - Insomnia - Hyperglycemia Patient Instructions - Continue current medications as prescribed. - Start taking Vitamin D3 1000 units, especially if insurance does not cover it and consider getting it over the counter. - Schedule next three-month follow-up visit to align with medication refills to avoid running out. - medication refills sent including lorazepam to be taken as needed 30 tablets Review of Systems - General: No fever no chills - Neurological: No headaches no dizziness - Ear nose throat: No sore throat no hearing difficulty no ear pain - Cardiovascular: No syncope, no chest pain, no palpitations - Gastrointestinal: No nausea vomiting or diarrhea - Endocrine: No polyuria polydipsia no heat intolerance - Genitourinary: No dysuria , no blood in urine Physical Exam - General: No acute distress - HEENT: No acute findings - Neck: Supple - Respiratory system: Able to talk in full sentences, no audible wheeze - Cardiovascular: S1-S2 regular in rate and rhythm - Gastrointestinal: No pain - Extremities: No new findings - CASING SOAKER: Alert awake oriented x3 motor sensory intact - Skin: Normal turgor [facility] Medical History Anxiety and depression Hypertension, essential Lipid disorder Hypokalemia Surgical History No pertinent past surgical history Family History Daughter Mental health disorder Father Mental health disorder Social History Household Members: Spouse Housing: House Alcohol intake: never Patient Tobacco Use Status: Never used Tobacco e-Cigarette/Vaping Use: Never Used service: No Current occupational status: employed 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 Cognitive needs: No Hearing needs: No Vision needs: Yes Questionnaire Thrive Questionnaire Date Thrive assessed: 03/01/25 I am a: Patient What is your living situation today?: I have a steady place to live Within the past 12 months, did the food you bought not last and you didn't have the money to get more?: Never true Within the past 12 months, did you worry whether your food would run out before you got money to buy more?: Never true Do you have trouble paying for medicines?: No Do you have trouble getting transportation to medical appointments?: No Do you have trouble paying your heating and electricity bill?: No Do you have trouble taking care of your child, family member or friend?: No Do you have trouble with day-to-day activities such as bathing, preparing meals, shopping, managing finances, etc.?: No Are you currently unemployed and looking for a job?: No Are you interested in more education?: No Please select the resources that you would like help with: None Currently or been in a relationship where the following occur: No concerns reported THRIVE Score: 0 BEN-7 AMB Questionnaire BEN-7 Date BEN - 7 assessed: 03/01/25 Source: Developed by Drs. Everette Hughes, Tali Dwyer, Niraj Bryan and colleagues, with an educational shawnee from [employer] Physical exam (Primary Care) Vital Signs: Last Vital Signs Pulse 60 06/01/25 11:40 BP 120/76 06/01/25 11:40 Pulse Ox 100 06/01/25 11:40 BMI result Body Mass Index 28.2 Tobacco/Smoking Status: Tobacco use Status Tobacco use date assessed 03/01/25 06/01/25 11:55 Patient Tobacco Use Status Never used Tobacco 06/01/25 11:55 e-Cigarette/Vaping Use Never Used 06/01/25 11:55 Thrive Assessment: Date of Thrive Assessment Date Thrive assessed 03/01/25 06/01/25 11:55 Currently or been in a relationship where the following occur: No concerns reported Coding Level of Care Code Est Pt Level 4 (78644) Diagnoses Racing thoughts R41.89 Impaired fasting blood sugar R73.01 Difficulty sleeping G47.9 Anxiety, generalized F41.1 Hypertension, essential I10 Assessment & Plan Assessment & Plan (1) Racing thoughts: Code(s): R41.89 - Other symptoms and signs involving cognitive functions and awareness Category: Medical (2) Impaired fasting blood sugar: Code(s): R73.01 - Impaired fasting glucose Category: Medical (3) Difficulty sleeping: Code(s): G47.9 - Sleep disorder, unspecified Category: Medical (4) Anxiety, generalized: Code(s): F41.1 - Generalized anxiety disorder Category: Medical (5) Hypertension, essential: Code(s): I10 - Essential (primary) hypertension Category: Medical Plan History of Present Illness The patient is a 49-year-old female presenting with medication management and follow-up on hypertension, anxiety, and sleep problems. Hypertension: - History of hypertension. - Currently taking atenolol and lisinopril for management. - No recent issues reported with hypertension. Anxiety: - The patient has experienced anxiety in the past. - Taking buspirone and escitalopram to manage anxiety. - No recent psychiatrist consultations, and patient reports no current need. Insomnia: - Previous difficulty with sleep noted. - Recently started on quetiapine (Seroquel) for sleep issues. - Reports significant improvement in sleep, describing the effect as night and day. Medical History: - Hypertension - History of anxiety and depression - Insomnia - Elevated fasting blood sugar (previously noted as high at 119) Medications: - Atenolol for hypertension - Lisinopril for hypertension - Escitalopram for anxiety - Buspirone for anxiety - Lorazepam - Quetiapine for insomnia - Simvastatin - Vitamin D supplement advised Diagnostic Results: - Labs: - CBC was normal. - Metabolic profile was normal. - Kidney function tests were normal. - Fasting blood sugar was elevated at 119. - A1c was 5.6. - Liver enzyme levels were within normal limits. - Cholesterol levels were within acceptable range. - Vitamin D was low. Problem List - Essential Hypertension - Generalized Anxiety Disorder - Insomnia - Hyperglycemia Patient Instructions - Continue current medications as prescribed. - Start taking Vitamin D3 1000 units, especially if insurance does not cover it and consider getting it over the counter. - Schedule next three-month follow-up visit to align with medication refills to avoid running out. - medication refills sent including lorazepam to be taken as needed 30 tablets Medications: New cholecalciferol (vitamin D3) 25 mcg PO DAILY 90 caps 1RF 90 days Refilled atenolol 100 mg PO DAILY 90 tabs 0RF 90 days I10 - Essential (primary) hypertension escitalopram oxalate 20 mg PO DAILY 90 tabs 0RF 90 days F32.9 - Major depressive disorder, single episode, unspecified, F41.9 - Anxiety disorder, unspecified quetiapine (Seroquel) 25 mg PO BEDTIME 90 tabs 0RF simvastatin 20 mg PO DAILY 90 tabs 0RF High cholesterol buspirone 5 mg PO TID PRN 90 tabs 0RF anxiety 30 days lisinopril 5 mg PO DAILY 90 tabs 0RF lorazepam 0.5 mg PO DAILY PRN 30 tabs 0RF anxiety
--- OUTSIDE RECORDS SUMMARY | 2025-06-01 14:43 | XMS_ITS ---
Author Name [facility] Organization Unknown Care Team Organization Name Specialty Phone Email Start Date End [facility] te Office of the [facility] ([facility]) 08/06/2024 05/22/2025
--- OUTSIDE RECORDS SUMMARY | 2025-06-01 14:43 | XMS_ITS | Clinical Summary ---
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 Name Role Phone Unavailable Primary Care Provider [...] Smear 1998 Colorectal Cancer Screening: Colonoscopy 08/20/2022 HIV Screening 08/20/2022 Hepatitis C Screening 08/20/2022 Social Influencers of Health Screening 08/20/2022 COVID-19 Vaccine ( - season) 2024 Depression Screening 09/22/2024 Influenza Vaccine (#1) 2025 Breast Cancer Screening 07/13/2026 07/13/20 24, [...] 5 Years) and At-Risk Patients (6 to 49 Years) Aged Out No longer eligible based [...] PM EDT Narrative 07/13/2024 3:57 PM EDT [facility] Diagnostic Imaging Department [address] [place] [address] Patient: ELIZABETH SKINNER./Age/Sex: 1975 - 48 - F Unit#: [id number] Location/Status: SPDIMAM/REG CLI Mnemonic/Ordering Site: [facility] Ordering Physician: SHKAIR MILLIGAN MD Kelly Screening Digital - 07/13/24 - 1409 Report Status:Signed EXAM: [facility] Screening Digital EXAM DATE AND TIME: 07/13/2024 2:09 PM HISTORY: Annual screening COMPARISON: 07/11/2023, 05/02/2022, 04/18/2021, 03/31/2020 and 12/09/2018 TECHNIQUE: Bilateral digital breast tomosynthesis was performed in the CC and MLO projections. Computer aided detection with [place] 7.2-H and CTMG 3D 3.1 was employed. TISSUE DENSITY: b. There are scattered areas of fibroglandular density. FINDINGS: No suspicious masses, grouped microcalcifications, or areas of architectural distortion are seen. The skin and vascularity are unremarkable. IMPRESSION: Stable mammographic appearance of the breasts. No evidence of malignancy is seen. A negative mammogram in the presence of a clinically suspicious palpable abnormality does not preclude the possibility of malignancy or alter the indications for biopsy. BI-RADS: Category 1: Negative RECOMMENDATION(S): 1: Routine screening mammogram BILATERAL in 1 year. Dictating Physician: ISAK ROSENTHAL MD Electronically Signed by: ISAK ROSENTHAL MD Dic Date/Time: 07/13/24 1555 Sign date/Time: 07/13/24 155 Procedure Note Isak Rosenthal MD - 07/20/2024 [facility] Diagnostic Imaging Department [address] [place] [address] Patient: ELIZABETH SKINNERO.B./Age/Sex: 1975 - 48 - F Unit#: [id number] Location/Status: SPDIMAM/REG CLI Mnemonic/Ordering Site: [facility] Ordering Physician: SHAKIR MILLIGAN MD [facility] Screening Digital - 07/13/24 - 1409 Report Status:Signed EXAM: [facility] Screening Digital EXAM DATE AND TIME: 07/13/2024 2:09 PM HISTORY: Annual screening COMPARISON: 07/11/2023, 05/02/2022, 04/18/2021, 03/31/2020 and 12/09/2018 TECHNIQUE: Bilateral digital breast tomosynthesis was performed in the CCand MLO projections. Computer aided detection with Hukkster 7.2-H andCTMG 3D 3.1 was employed. TISSUE DENSITY: b. [...] by: ISAK ROSENTHAL MD Dic Date/Time: 07/13/24 1557 Sign date/Time: 07/13/24 6784 Shakir Milligan MD IMG BI PROCEDURES Final Result from Last 3 Months or Most Recently Relevant to Health Maintenance
== END 2025-06-01 13:30 | disposition home or self-care (01) ==
LOC: HO.HMCC 11:33
PROVIDERS: PCP Internal Medicine; Visit Provider Internal Medicine
DX: R41.89 Other symptoms and signs involving cognitive functions and awareness (principal); R73.01 Impaired fasting glucose; G47.9 Sleep disorder, unspecified; F41.1 Generalized anxiety disorder; I10 Essential (primary) hypertension

== ENCOUNTER 2025-09-12 10:16 | Day surgery (SDC) | payer BC, SELFPAY ==
--- NOTE | 2025-09-08 09:56 | HO.ANESPROP2 ---
Documented by User: Jeri Rausch NP 09/08/25 09:56 HPI - Anesthesia Eval Consult details Narrative: 49yo F for Colonoscopy PMFSH Active Problems Active Problems: All Active Problems Hypertension, essential (Acute) Racing thoughts (Acute) Anxiety, generalized (Acute) Impaired fasting blood sugar (Acute) LFT elevation (Acute) Difficulty sleeping (Acute) Encounter for general adult medical examination with abnormal findings (Acute) Bilateral hand pain (Acute) Family history of rheumatoid arthritis (Acute) Arthrosis (Acute) Past Medical History Medical History Anxiety and depression Hypertension, essential Lipid disorder Hypokalemia Family History Family History Daughter Mental health disorder Father Mental health disorder Surgical History Surgical History No pertinent past surgical history Social History Social History Household Members: Spouse Housing: House Alcohol intake: never Patient Tobacco Use Status: Never used Tobacco e-Cigarette/Vaping Use: Never Used Use of substances other than those prescribed or required for medical reasons: No Advance Directives: No Advance Directives Information Provided: Yes service: No Current occupational status: employed 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 Cognitive needs: No Hearing needs: No Vision needs: Yes Meds Allergies Allergy/AdvReac Type Severity Reaction Status Date / Time No Known Allergies Allergy Verified 06/01/25 11:43 Home Medications ?Medication ?Instructions ?Recorded ?Confirmed ?Last Taken ?Type diclofenac sodium 1 % topical gel 2 g topical QID PRN 05/18/21 06/01/25 Unknown History (Voltaren Arthritis Pain) Assessment and Plan Assessment Anesthesia Assessment: Chart Reviewed Documented by User: Chaitanya Zamudio MD 09/12/25 13:30 PMFSH Past Medical History Medical History Anxiety and depression Hypertension, essential Lipid disorder Hypokalemia Patient : No Family History Family History Daughter Mental health disorder Father Mental health disorder Family history of problems with anesthesia: No Surgical History Surgical History No pertinent past surgical history History of Problems with Anesthesia: No Social History Social History Household Members: Spouse Housing: House Alcohol intake: never Patient Tobacco Use Status: Never used Tobacco e-Cigarette/Vaping Use: Never Used Use of substances other than those prescribed or required for medical reasons: No Advance Directives: No Advance Directives Information Provided: Yes service: No Current occupational status: employed 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 Cognitive needs: No Hearing needs: No Vision needs: Yes Meds Allergies Allergy/AdvReac Type Severity Reaction Status Date / Time No Known Allergies Allergy Verified 06/01/25 11:43 Home Medications ?Medication ?Instructions ?Recorded ?Confirmed ?Last Taken ?Type diclofenac sodium 1 % topical gel 2 g topical QID PRN 05/18/21 06/01/25 Unknown History (Voltaren Arthritis Pain) Exam Airway Mallampati Class: II TM Dist: <=3cm Neck ROM: Full Loose/Missing/Broken Teeth: No Heart: ok Lungs: ok Assessment and Plan Assessment Anesthesia Assessment: Anesthesia Plan Discussed Final Anesthetic Review Family History of Problems with Anesthesia: No History of Problems with Anesthesia: No NPO: Yes ASA Class: II Final Preanesthetic Review: No Changes in Pt Med Stat, Meds/Allgs Chart Reviewed, Consent Obtained/Reviewed and Anes Risks/Benef Reviewed Patient Risk: Low Procedure Risk: Low Anesthetic Plan Anesthetic Plan: MAC: and Agree w/ Assess. and Plan Disposition: Standard PACU
[2025-09-08 14:10] VITALS: BMI 27.8
[2025-09-12 10:36] VITALS: BMI 27.7
[2025-09-12] MEDS: Lactated Ringers 1,000 ML 100 ML IVCONT (10:49)
[2025-09-12 10:51] LABS: UPreg QC Valid YES
[2025-09-12 10:54] VITALS: BP 166/91; PULSE 54; RESP 16; TEMP 36.4; O2SAT 100
--- NOTE | 2025-09-12 12:16 | P.HPSUR_ITS ---
Pre-Procedural Eval Section A - 24 Hr Update-Section A only Date of Service: 09/12/25 The patient is an INPATIENT: No The patient has been examined within 24 hours of the surgical procedure. The History & Physical has been completed within 30 days and I have reviewed it.: No Section B - Complete if H&P > 30 days Chief Complaint: screening Relevant Family History (Specify if Yes): No Relevant Social History: None Present Medications: see Short Stay Collaborative assessment Medical History: Significant History (Anxiety and depression Hypertension, essen tial Lipid disorder Hypokalemia) History of Previous Operations: No relevant previous surgery Allergies: Allergies Allergy/AdvReac Type Severity Reaction Status Date / Time No Known Allergies Allergy Verified 06/01/25 11:43 Review of Systems Sugical H&P ROS: Negative: Constitution, Cardiovascular, Respiratory and Gastrointestinal Exam Surgical H&P Exam: Normal: Heart, Normal: Lungs, Normal: Extremities and Normal: Abdomen Plan Diagnosis/Plan: Change (proceed with colonoscopy) I have reviewed the history and physical and performed a pertinent physical examination on my patient. No changes have occurred unless specified. Time Spent With Patient Time: Total time managing care of this patient today ____ minutes.
--- NOTE | 2025-09-12 13:17 | P.OPN-COLO_ITS ---
Colonoscopy Operative Note Operative Note Date of Service: 09/12/25 Narrative: COLONOSCOPY TILL CECUM WITH SNARE POLYPECTOMY Pre-op diagnosis: Colon cancer screening, family history of colon cancer (maternal GF in his 70's) and colon polyps (Mom in her 50's). Post-op diagnosis:? Colon polyps, Diverticulosis, Endoscopist:? Lorie Balderrama MD Anesthesia:?MAC Consent: Indications for the procedure and potential complications of bleeding, perforation, reaction to medications and missed diagnosis were discussed with the patient and informed consent was obtained. Instrument: Olympus PCF H 190 L variable stiffness pediatric colonoscope Monitoring: Vital signs and clinical assessment, intermittent blood pressure monitoring, continuous EKG monitoring, Pulse oximetry and Carbon Dioxide monitoring were done throughout the procedure. Please see anesthesia flowsheet. Colon withdrawl time was 20 minutes. Procedure: The patient was placed in the left lateral decubitis position and pre-procedure medications were administered. After a digital rectal examination of the ano-rectum, the video colonoscope was inserted into the rectum and advanced through the colon to the cecum. The colonoscope was slowly withdrawn in a retrograde panoramic fashion and the colon mucosa was carefully examined including a retroflexed view of the rectum. Findings and interventions are described below. Procedure Difficulty: without difficulty Findings: Terminal Ileum: Not evaluated Cecum: Normal Ascending Colon: A 4-5 mm sessile polyp in the proximal ascending colon - removed with a cold snare Transverse Colon: Two 10-12 mm sessile polyps - removed with a hot snare. Descending Colon: Moderate diverticulosis Sigmoid Colon: Moderate diverticulosis Rectum: Normal Ano-rectum: Normal Colon preparation: Good after some irrigation. [place] Bowel Preparation Scale Right colon; 2 Transverse colon: 2 Left colon; 2 (0 = Unprepared colon segment with mucosa not seen due to solid stool that cannot be cleared. 1 = Portion of mucosa of the colon segment seen, but other areas of the colon segment not well seen due to staining, residual stool and/or opaque liquid. 2 = Minor amount of residual staining, small fragments of stool and/or opaque liquid, but mucosa of colon segment seen well. 3 = Entire mucosa of colon segment seen well with no residual staining, small fragments of stool or opaque liquid) Impression and Post Procedure Diagnosis: Colonoscopy Findings: Three small to medium sized polyps were removed Moderate diverticulosis seen in the left colon Plan: I will send a letter with biopsy results. Repeat Colonoscopy in 3-5 years if polyps are adenomatous and due to family history of colon cancer and polyps. Above findings were reviewed with the patient and relevant handouts were given and the discharge area. BIOPSIES SHOWED: A. Colon, ascending, polyp: Tubular adenoma; negative for high-grade dysplasia and carcinoma. B. Colon, transverse, polyp: Tubular adenoma; negative for high-grade dysplasia and carcinoma Letter sent to the patient with biopsy results. Patient was placed on the colonoscopy recall list for repeat colonoscopy in 3 years.
[2025-09-12 13:49] VITALS: BP 88/55; PULSE 56; RESP 16; TEMP 36.6; O2SAT 96
[2025-09-12 14:03] VITALS: BP 118/91; PULSE 52; RESP 16; O2SAT 99
== END 2025-09-12 14:34 | disposition home or self-care (01) ==
PROVIDERS: Nurse Practitioner; PCP Internal Medicine; Visit Provider Internal Medicine Gastroenterology
PROC: 0DJD8ZZ Inspection of Lower Intestinal Tract, Via Natural or Artificial Opening Endoscopic (ICD-10-PCS; CPT 45378; principal; 2025-09-12 12:10)
DX: Z12.11 Encounter for screening for malignant neoplasm of colon (principal); Z83.719 Family history of colon polyps, unspecified; K57.30 Diverticulosis of large intestine without perforation or abscess without bleeding; D12.2 Benign neoplasm of ascending colon; D12.3 Benign neoplasm of transverse colon
CPT/HCPCS: 45385; 81025; 88305; J2003; J2704

== ENCOUNTER → 2025-09-12 10:16 | Outpatient (BNV) | payer BC, SELFPAY | PROVIDERS: PCP Internal Medicine; Visit Provider Internal Medicine Gastroenterology | DX: Z12.11 Encounter for screening for malignant neoplasm of colon (principal); K63.5 Polyp of colon; K57.90 Diverticulosis of intestine, part unspecified, without perforation or abscess without bleeding | CPT/HCPCS: 45385 ==